=== PATIENT | male | born 1935 | race Caucasian/White ===

== ENCOUNTER 2019-08-17 00:07 | Emergency (ER) | payer MEDICARE, SELFPAY ==
[2019-08-17 00:27] VITALS: BP 214/94; PULSE 60; RESP 16; TEMP 37.4; O2SAT 99
--- NOTE | 2019-08-17 00:36 | ED.EPISTAXIS ---
HPI - Epistaxis General Chief complaint: Epistaxis Stated complaint: nose bleed Time Seen by Provider: 08/17/19 00:31 Source: patient and family Mode of arrival: ambulatory Limitations: no limitations History of Present Illness HPI Narrative: Patient presents to the emergency department for evaluation of a nosebleed that has resolved at the time of assessment. Patient states that he his nose felt very congested when he noticed a nosebleed in his right nostril. Patient states he then felt as if he was swallowing some of the blood. Symptoms resolved after about 10 minutes, but patient wanted to be checked out. Patient reports a history of a nosebleed usually once a year. No recent medication changes. He is compliant with his antihypertensives. Patient denies any chest pain or shortness of breath. No easy bruising. No trauma to the face. No current bleeding. No lightheadedness or dizziness. Patient takes clopidogrel, no other anticoagulation. Related Data Home Medications Medication Instructions Recorded Confirmed oxybutynin chloride 5 mg PO DAILY 08/17/19 Allergies Allergy/AdvReac Type Severity Reaction Status Date / Time No Known Allergies Allergy Verified 08/17/19 00:26 Review of Systems Review of Systems: Narrative: CONSTITUTIONAL: Denies fever HEENT: Reports nosebleed, now resolved CARDIOVASCULAR: Denies chest pain RESPIRATORY: Denies cough or dyspnea. GASTROINTESTINAL: Denies abdominal pain SKIN: Denies rash MUSCULOSKELETAL: Denies back pain NEUROLOGIC: Denies headache PMFSH Past Medical History Medical History BPH w/o urinary obs/LUTS CAD in [place] artery Carpal tunnel syndrome Coronary artery disease Dyslipidemia Elevated lipids Erectile dysfunction Essential (primary) hypertension Hx of iron deficiency anemia Leg fracture 1970 Myocardial infarction OAB (overactive bladder) Unspecified osteoarthritis, unspecified site Vitamin B12 deficiency Surgical History Surgical History History of arthroscopy of knee History of arthroscopy of shoulder 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 EYES: PERRLA and EOMI. ENT: Nares clear, no rhinorrhea or epistaxis. Mucous membranes moist. Dried blood in the oropharynx, no active epistaxis. NECK: Supple. CHEST: No respiratory distress, breathing even and non labored HEART: Regular rate, sinus rhythm ABDOMEN:Non distended, non tender EXTREMITIES: Normal range of motion. No edema. SKIN: Warm, dry, no rash. NEURO:No focal deficits. Alert and oriented x3 Course Vital Signs Vital signs: Vital Signs Temperature 37.4 C 08/17/19 00:27 Pulse Rate 60 08/17/19 00:27 Respiratory Rate 16 08/17/19 00:27 Blood Pressure 214/94 H 08/17/19 00: Pulse Oximetry 99 08/17/19 00:27 Temperature 37.4 C 08/17/19 00:27 Pulse Rate 60 08/17/19 00:27 Respiratory Rate 16 08/17/19 00:27 Blood Pressure 214/94 H 08/17/19 00:27 Pulse Oximetry 99 08/17/19 00:27 MDM - Epistaxis MDM Narrative Medical decision making narrative: Patient presented for evaluation of epistaxis that has resolved at the time of assessment. Patient is noted to be hypertensive, and this likely contributed to his nosebleed. Patient is otherwise asymptomatic without headache, chest pain, shortness of breath. No lightheadedness or dizziness. I verified patient's medication list, he is not on any other anticoagulation. He does take clopidogrel. I do not feel that we need to check blood wor
[2019-08-17] MEDS: OXYMETAZOLINE HCL 0.05% NAS 15 ML BTL (*BKC) 1 SPRAY (00:54)
[2019-08-17 01:07] VITALS: BP 198/90; PULSE 56; RESP 16; TEMP 36.9; O2SAT 98
[2019-08-17 01:16] VITALS: BP 175/85; PULSE 57; RESP 21; O2SAT 97
== END 2019-08-17 01:23 | disposition home or self-care (01) ==
PROVIDERS: Emergency Provider Emergency Medicine; PCP Family Medicine
DX: R04.0 Epistaxis (principal); I10 Essential (primary) hypertension; N40.0 Benign prostatic hyperplasia without lower urinary tract symptoms; I25.10 Atherosclerotic heart disease of native coronary artery without angina pectoris; E78.5 Hyperlipidemia, unspecified; I25.2 Old myocardial infarction; N32.81 Overactive bladder; E55.9 Vitamin D deficiency, unspecified; M19.90 Unspecified osteoarthritis, unspecified site; Z96.659 Presence of unspecified artificial knee joint
CPT/HCPCS: 99283; A9270

== ENCOUNTER 2021-05-23 16:17 | Emergency (ER) | payer MEDICARE, SELFPAY ==
--- NOTE | ~2021-05-23 | XR_ITS ---
XR chest 2V DATE: 05/23/2021 17:28 INDICATION: Cough TECHNIQUE: PA and lateral views COMPARISON: 05/30/2013 2 view chest FINDINGS: Heart size is within normal range. Is aortic calcification and tortuosity. No hilar or medi astinal enlargement. Right apical scarring. Right lower lobe and middle lobe scarring, chronic, present on May 02 14. Thank you devices of both femoral heads. Osteoarthritic change at the glenohumeral joints. Rotator cuff atrophy. Mild dextroscoliosis of the thoracic spine. IMPRESSION: Chronic right apical, middle lobe and right lower lobe scarring Reviewed, dictated and finalized at location A.
--- NOTE | 2021-05-23 16:22 | ECG_ITS ---
Measurements Intervals [place] Rate: 69 P: 66 [place]: 164 QRS: -53 QRSD: 165 T: -24 QT: 459 QTc: 494 Interpretive Statements SINUS RHYTHM WITH OCCASIONAL SUPRAVENTRICULAR PREMATURE COMPLEXES RIGHT BUNDLE BRANCH BLOCK [120+ ms QRS DURATION, UPRIGHT V1, 40+ ms S IN I/aVL/V4/V5/V6] LEFT ANTERIOR FASCICULAR BLOCK [QRS AXIS <= -45, QR IN I, RS IN II] NO PREVIOUS ECG AVAILABLE FOR COMPARISON Electronically Signed On 05-23-2021 18:49:20 CDT by Martha Hathaway M.D.
[2021-05-23 16:35] VITALS: BP 152/67; PULSE 64; RESP 14; TEMP 37; O2SAT 100
[2021-05-23 17:00] LABS: Add Urine Microscopic? YES; Appearance Urine Clear (Clear); Bilirubin Urine Negative (Negative); Blood Urine 1+ (Negative); Color Urine Yellow (Yellow); Glucose Urine UA Negative (Negative); Ketones Urine Negative (Negative); Leukocyte Esterase Ur Negative LEU/UL (Negative); Mucus Urine Rare /lpf; Nitrate Urine Negative (Negative); Protein Urine Negative (Negative); Specific Grav Ur 1.014 (1.001-1.035); Urobilinogen Urine Negative mg/dL (<2.0); WBC Urine 0-3 /hpf
--- NOTE | 2021-05-23 17:22 | ED.BACK ---
HPI - Back Pain/Injury General Chief Complaint: Back Pain/Injury Stated Complaint: Back pain/ chest pain Time Seen by Provider: 05/23/21 17:05 Source: patient Mode of arrival: ambulatory Limitations: no limitations History of Present Illness HPI Narrative: 86 year old male presents today with complaints of generalized aches and pain to the upper body. Patient states since Thursday he has had aches and pains to his arms, chest, shoulders, and neck. Patient also states he has had a cough and runny nose which is new. Denies sob, abdominal pain, n/v/d, or recent falls. Patient with history significant for arthritis, covid in 2019, [place] in 2010 (pain is not similar), and high cholesterol. Related Data Home Medications Medication Instructions Recorded Confirmed vitamin B complex 1 tablet PO DAILY 12/04/20 12/04/20 Allergies Allergy/AdvReac Type Severity Reaction Status Date / Time No Known Allergies Allergy Verified 11/29/19 09:10 Review of Systems Review of Systems: CONSTITUTIONAL: Denies fever, chills, or sweats. EYES: Denies visual changes, redness, or discharge. ENT: Rhinorrhea. Denies congestion, sore throat, or otalgia. CARDIOVASCULAR: Chest/pleuritic pain lasting short periods of time in varying spots. Denies palpitations, or edema. RESPIRATORY: Cough. Pain with deep breath at times. Denies dyspnea. GASTROINTESTINAL: Denies abdominal pain, nausea, vomiting, or diarrhea. GENITOURINARY: Denies dysuria or hematuria. SKIN: Denies rash or itching. MUSCULOSKELETAL: Generalized body aches to upper body, shoulder, neck, chest, arms. NEUROLOGIC: Denies headache, numbness, dizziness, or weakness. PSYCHIATRIC: Denies anxiety or depression. [facility] Past Medical History Medical History BPH w/o urinary obs/LUTS CAD in [place] artery Carpal tunnel syndrome Coronary artery disease Dyslipidemia Elevated lipids Erectile dysfunction Essential (primary) hypertension Hx of iron deficiency anemia Leg fracture 1970 Myocardial infarction OAB (overactive bladder) Unspecified osteoarthritis, unspecified site Vitamin B12 deficiency Surgical History Surgical History History of arthroscopy of knee (~04/30/20) History of arthroscopy of shoulder 2002 - left, 2005 - right History of carpal tunnel surgery of left wrist 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 HEAD: Normocephalic, atraumatic. EYES: PERRLA and EOMI. ENT: Nares clear, no rhinorrhea or epistaxis. Mucous membranes moist. Oropharynx without tonsillar hypertrophy exudate or other lesions. Bilateral TMs pearly keller nonbulging NECK: Supple. No adenopathy or masses. No carotid bruits or JVD CHEST: Clear to auscultation. No respiratory distress. No wheezes rales or rhonchi HEART: Regular rate and rhythm. No murmur heard. Normal peripheral pulses. ABDOMEN: Soft, nontender, nondistended, normal active bowel sounds. EXTREMITIES: Normal range of motion. No edema. SKIN: Warm, dry, no rash. NEURO: No focal deficits. Alert and oriented x3. PSYCH: Normal mood and affect. Course Course Emergency Course: 78-year-old male with complaints of intermittent generalized pain to upper extremities, trunk, and neck. All results reviewed with patient. Patient without pain while he has been here. Patient also states that pain is relieved with 1 arthritis Tylenol. Chest x-ray does show some arthritis. Cici
[2021-05-23 17:38] LABS: SARS-CoV-2 RNA PCR Negative
[2021-05-23 18:43] VITALS: BP 148/86; PULSE 70; RESP 16; O2SAT 98
== END 2021-05-23 19:03 | disposition home or self-care (01) ==
PROVIDERS: Emergency Medicine; Emergency Provider Nurse Practitioner Family; PCP Family Medicine
DX: M15.9 Polyosteoarthritis, unspecified (principal); Z20.822 Contact with and (suspected) exposure to COVID-19; I25.10 Atherosclerotic heart disease of native coronary artery without angina pectoris; N40.0 Benign prostatic hyperplasia without lower urinary tract symptoms; E78.5 Hyperlipidemia, unspecified; I10 Essential (primary) hypertension; I25.2 Old myocardial infarction; N32.81 Overactive bladder; E53.8 Deficiency of other specified B group vitamins; Z96.651 Presence of right artificial knee joint; Z86.2 Personal history of diseases of the blood and blood-forming organs and certain disorders involving the immune mechanism; I49.1 Atrial premature depolarization; I45.2 Bifascicular block
CPT/HCPCS: 71046; 81001; 87804; 93005; 99283; C9803; U0003; U0005

== ENCOUNTER 2021-06-05 14:11 | Outpatient (CLI) | payer MEDICARE, SELFPAY ==
--- NOTE | ~2021-06-05 | XR_ITS ---
XR cervical spine min 6V DATE: 06/05/2021 14:32 INDICATION: Chronic anterior and posterior neck pain. No known injury. TECHNIQUE: AP, open-mouth, lateral, swimmer's and bilateral oblique views COMPARISON: None FINDINGS: There is reversal cervical curvature. C1 and C2 are normally aligned and the odontoid process is intact. There is 1.7 mm anterolisthesis at C2-3. There is severe degenerative disc disease at C4-5, C5-6 and C6-7. There is extensive degenerative change of the apophyseal and uncovertebral joints, encroaching upon t he neural foramina bilaterally. No fracture or dislocation, locked facet or prevertebral soft tissue swelling. IMPRESSION: Reversal of cervical curvature Severe cervical spondylosis Reviewed, dictated and finalized at location A.
== END 2021-06-05 14:12 | disposition home or self-care (01) ==
LOC: ANHIMG 14:17
PROVIDERS: PCP Family Medicine; Visit Provider Nurse Practitioner
DX: M47.812 Spondylosis without myelopathy or radiculopathy, cervical region (principal)
CPT/HCPCS: 72052

== ENCOUNTER 2021-06-14 13:47 | Outpatient (CLI) | payer MEDICARE, SELFPAY ==
--- NOTE | ~2021-06-14 | CT_ITS ---
EXAMINATION: CT humerus LT wo con DATE: 06/14/2021 14:12 INDICATION: Left upper arm pain TECHNIQUE: High resolution computed tomography (CT) of the left upper arm was performed without intra venous contrast. Additional sagittal and coronal reconstructions were performed. Automated exposure c ontrol and iterative reconstruction technique were employed. The dose-length product was 861.36 mGy-c m. COMPARISON: None FINDINGS: Bone alignment is normal. No fracture. Suture anchors at the greater tuberosity left humerus consiste nt with prior rotator cuff repair. There also appears to been an associated acromioplasty and distal left clavicle resection. Advanced left glenohumeral osteoarthritis with extensive full thickness cart ilage loss resulting in [id number] apposition with subarticular cystic changes along the glenoid an d humeral head. There is remodeling of the glenoid resulting in loss of bone stock with significant m edial to lateral thinning of the posterior glenoid. Moderate-sized humeral and small glenoid marginal osteophytes are present. Corticated ossicle near the apex of the humeral head consistent with either heterotopic ossification along the rotator cuff or a degenerative loose body. There is more subtle a nd amorphous calcification in the soft tissues at the subcoracoid space consistent with supraspinatus and infraspinatus calcific tendinitis. Additional ossific tendinitis of the subscapularis tendon as well as of the long head biceps tendon at the junction of the intra and extra articular portion of th e tendon. Moderate-sized glenohumeral joint effusion. Mild to moderate osteoarthritis at the left elb ow with small amount of additional subarticular cystlike changes involving portions of all 3 compartm ents of the elbow joint. No elbow joint effusion. Partially visualized lenticular region of mixed sof t tissue and fat attenuation along the posterolateral ribs of the mid thorax consistent with elastofi broma dorsi. Mild atelectasis at the left lung base along with a small calcified nodule consistent wi th old granulomatous disease. No pathologically enlarged left axillary lymphadenopathy. IMPRESSION: 1. Advanced left glenohumeral osteoarthritis. 2. 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 Reviewed, dictated and finalized at location B.
== END 2021-06-14 13:48 | disposition home or self-care (01) ==
PROVIDERS: PCP Family Medicine; Visit Provider Family Medicine
DX: M79.622 Pain in left upper arm (principal); M19.012 Primary osteoarthritis, left shoulder; D36.7 Benign neoplasm of other specified sites
CPT/HCPCS: 73200

== ENCOUNTER 2021-07-30 08:53 | Outpatient (CLI) | payer MEDICARE, SELFPAY ==
--- NOTE | ~2021-07-30 | XR_ITS ---
EXAMINATION: XR shoulder LT min 2V DATE: 07/30/2021 09:30 INDICATION: Left shoulder pain TECHNIQUE: AP internally, AP oblique externally rotated and axillary views of the left shoulder were obtained. COMPARISON: None FINDINGS: Normal alignment. No fracture.Postoperative change of prior acromioplasty and distal clavicle resect ion. Suture anchors at the greater tuberosity consistent with prior rotator cuff repair. Advanced lef t glenohumeral osteoarthritis with remodeling of the glenoid. Small heterotopic ossicle overlying the apex of the humeral head. This more dystrophic calcifications along the greater tuberosity likely re lated to rotator cuff calcific tendinitis. Visualized portions of the lungs are clear. Soft tissues a re unremarkable. IMPRESSION: 1. Advanced left glenohumeral osteoarthritis. 2. Postoperative change of left cranioplasty, distal clavicle resection and rotator cuff repair. 2. Left rotator cuff calcific tendinitis. Reviewed, dictated and finalized at location B. IMPRESSION: 1. Advanced left glenohumeral osteoarthritis. 2. Postoperative change of left cranioplasty, distal clavicle resection and rot ator cuff repair. 2. Left rotator cuff calcific tendinitis.
== END 2021-07-30 08:54 | disposition home or self-care (01) ==
LOC: CHSIMG 08:56
PROVIDERS: PCP Family Medicine; Visit Provider Orthopaedic Surgery
DX: M25.512 Pain in left shoulder (principal)
CPT/HCPCS: 73030

== ENCOUNTER 2021-11-19 09:52 | Outpatient (CLI) | payer MEDICARE, SELFPAY ==
--- NOTE | ~2021-11-19 | XR_ITS ---
EXAM: XR shoulder RT min 2V DATE: 11/19/2021 10:32 HISTORY: M25.511 - Pain in right shoulder x 6 months hx scope . COMPARISON: None available. FINDINGS: Right humeral head soft tissue anchors. Decreased mineralization. No fracture or dislocati on. No lytic or blastic lesion. Superior humeral head migration with undersurface remodeling. Severe glenohumeral narrowing with sclerosis, osteophytosis, and glenoid remodeling. Calcium deposition in t he remaining cuff soft tissues. No erosion or periosteal change. IMPRESSION: Severe right glenohumeral osteoarthritis. Rotator cuff tear. Calcific tendinitis. Reviewed, dictated and finalized at location K. IMPRESSION: Severe right glenohumeral osteoarthritis. Rotator cuff tear. Calcif ic tendinitis.
== END 2021-11-19 09:53 | disposition home or self-care (01) ==
LOC: CHSIMG 09:57
PROVIDERS: PCP Family Medicine; Visit Provider Orthopaedic Surgery
DX: M25.511 Pain in right shoulder (principal)
CPT/HCPCS: 73030

== ENCOUNTER 2022-05-22 01:09 | Outpatient (CLI) | payer MEDICARE, SELFPAY ==
--- NOTE | 2022-05-15 15:29 | PC.NURSE ---
Pre Radiology instructions Report to the outpatient [facility] AT 0800 on date 05/22/22. Procedure Time: 1000. YOU MAY BE MONITORED AT HOSPITAL FOR UP TO 4 HOURS AFTER YOUR PROCEDURE. 1-2 visitors will be allowed to accompany the patient into the hospital. ?The visitor will be instructed to remain with patient at all times or MAY BE ASKED TO leave the building due to restrictions.? We will allow the visitor to come back to the postoperative area when patient is ready.? NO children visitors allowed at this time. You and your visitor will be asked to self-screen and do not enter if you have any COVID symptoms. A mask is OPTIONAL within the hospital. Patients are to have no food or drink 6 hours prior to procedure time Driving will be restricted after the procedure, you must have a person to drive you home. Labs will be drawn in preop area and once reviewed, you will be taken to radiology area for procedure. When the procedure is completed, you will be taken to outpatient where you will be monitored for several hours. You may have one visitor in this area. Other than holding anti-coagulants, patient may take other medication(s) as scheduled. Prior to your appointment date patients are instructed to hold anti-coagulants after discussing with ordering provider to stop. If unable to discontinue anti-coagulants please notify radiologist. ? No aspirin or warfarin (Coumadin) for 7 days prior to the procedure. ? No clopidogrel (Plavix), ticagrelor (Brilinta), prasugrel (Effient) or dabigatran (Pradaxa) for 5 days prior to the procedure. ? No rivaroxaban (Xarelto), apixaban (Eliquis), dipyridamole (Aggrenox or Persantine) or cilostazol (Pletal) for 2 days prior to the procedure. Medications to discontinue per physician: PLAVIX Date to take last dose: 05/16/22 Please leave all valuables, including medications, at home the day of procedure. The hospital will not accept responsibility for valuables. Wear comfortable, loose fitting clothing.? Follow any additional instructions given to you from ordering provider. Telephone instructions given to AC LEMUS and asked if any additional questions and then verbalized understanding. Patient advised to call scheduling provider office or registration scheduling [phone] if any additional questions.
[2022-05-15 15:31] VITALS: BMI 24.4
[2022-05-22] VITALS (9 sets, daily range): BP systolic 146–160; BP diastolic 62–99; PULSE 49–57; RESP 16; TEMP 36.8; O2SAT 100
--- NOTE | ~2022-05-22 | XR_ITS ---
EXAMINATION: 1. CT cervical spine w con 2. XR myelogram spine cervical DATE: 05/22/2022 10:20 INDICATION: Neck pain. TECHNIQUE: The procedure including the risks, benefits, and alternatives was discussed with the patie nt. Risks discussed included headache, bleeding, and infection. The patient understood the risks and agreed to proceed. A timeout was performed to verify the patient's name, date of , and proced ure to be performed. The skin overlying the L4-L5 level was prepped and draped in usual sterile fash ion. Subcutaneous 1% lidocaine was used for local anesthesia. A 22 gauge spinal needle was advanced under fluoroscopic guidance. 10 mL Omnipaque 300 was injected. The needle was removed and the entry site was cleaned and dressed. There were no immediate complications. Fluoroscopy exposure time was 0 .2 minutes. The total number of images was 2. Computed tomography (CT) of the cervical spine was perf ormed without intravenous contrast. Automated exposure control and iterative reconstruction technique were employed. The dose-length product was 528.60 mGy-cm. COMPARISON: chest CT 04/16/11 FINDINGS: CERVICAL MYELOGRAM: Real-time fluoroscopy demonstrates the needle at the L4-L5 level. There is poor o pacification of the cervical spinal fluid with fluoroscopy, and further details will be described on the post myelogram CT. POST MYELOGRAM CERVICAL SPINE CT: There is scarring at the lung apices, right worse than left. There is 13 degrees levoscoliosis of cervicothoracic spine. There is 2 mm anterolisthesis of C2 on C3, C3 o n C4, C4 on C5, and C7 on T1. There is mild kyphosis of cervical spine. Vertebral body heights are no rmal. There is mildly decreased disc height at C2-C3 and C3-C4, severely decreased disc height from C 4-C5 through C6-C7, and mildly decreased disc height at C7-T1. The spinal cord morphology is normal. The following disc levels are specifically discussed: C2-C3: There is ankylosis of the right uncovertebral joint hypertrophy. There is ankylosis of the fac et joints with mild hypertrophy. There is no neural foraminal stenosis. There is no central canal aurora nosis. C3-C4: There is severe right and moderate left uncovertebral joint osteoarthritis. There is severe bi lateral facet joint osteoarthritis. There is mild bilateral neural foraminal stenosis. There is mild central canal stenosis. C4-C5: There is ankylosis of the uncovertebral joints with mild hypertrophy. There is ankylosis of th e facet joints with mild hypertrophy. There is mild bilateral neural foraminal stenosis. There is mil d central canal stenosis. C5-C6: There is severe bilateral uncovertebral joint osteoarthritis. There is severe bilateral facet joint osteoarthritis. There is moderate right and mild left neural foraminal stenosis. There is mild central canal stenosis. C6-C7: There is severe bilateral uncovertebral joint osteoarthritis. There is severe bilateral facet joint osteoarthritis. There is mild right neural foraminal stenosis. There is mild central canal sten osis. C7-T1: There is no uncovertebral joint osteoarthritis. There is severe bilateral facet joint osteoart hritis. There is no neural foraminal stenosis. There is no central canal stenosis. IMPRESSION: 1. Severe cervical spondylosis. 2. Cervicothoracic levoscoliosis. 3. Anterior and posterior fusion at C2-C3 and C4-C5. Reviewed, dictated and finalized at location A. IMPRESSION: 1. Severe cervical spondylosis. 2. Cervicothoracic levoscoliosis. 3. Anterior and posterior fusion at C2-C3 and C4-C5.
[2022-05-22 08:55] LABS: Mean Platelet Volume 10.3 fl (7.4-10.4); Platelet Count Result 205 k/mm3 (150-375)
[2022-05-22 09:02] LABS: INR 1.2; Prothrombin Time 14.2 Seconds (11.1-14.7)
== END 2022-05-22 12:35 | disposition home or self-care (01) ==
PROVIDERS: PCP Family Medicine; Referring Provider Neurological Surgery; Visit Provider Radiology Diagnostic Radiology
DX: M47.812 Spondylosis without myelopathy or radiculopathy, cervical region (principal); M41.9 Scoliosis, unspecified
CPT/HCPCS: 36415; 62302; 72126; 85049; 85610; Q9967

== ENCOUNTER 2022-07-10 08:38 | Outpatient (CLI) | payer MEDICARE, SELFPAY ==
[2022-07-10 12:49] LABS: Basophils Absolute Auto 0.1 K/mm3 (0.0-0.1); Eosinophils Absolute Auto 0.2 K/mm3 (0-0.3); Eosinophils Percent Auto 3.3 % (0-4.4); Hematocrit 35.3 % (42.0-52.0); Hemoglobin 11.6 g/dL (14.0-18.0); Immature Granulocyte Absolute 0.01 K/mm3 (0.00-0.031); Immature Granulocyte Percent A 0.2 % (0-0.5); Lymphocytes Absolute Auto 0.96 K/mm3 (0.9-3.2); Lymphocytes Percent Auto 18.7 % (18.3-44.2); Mean Corpuscular HGB Conc 32.9 g/dl (32-36); Mean Corpuscular Hemoglobin 29.4 pg (26-34); Mean Corpuscular Volume 89.4 fl (80-100); Mean Platelet Volume 10.8 fl (7.4-10.4); Monocytes Absolute Auto 0.6 K/mm3 (0.1-0.6); Monocytes Percent Auto 11.9 % (2.6-8.5); Neutrophils Absolute Auto 3.3 K/mm3 (1.3-6.7); Neutrophils Percent Auto 64.9 % (45.5-73.1); Platelet Count Result 204 k/mm3 (150-375); Red Blood Count 3.95 M/mm3 (4.6-6.20); Red Cell Distribution Width 14.1 % (11.5-14.5); White Blood Count 5.1 K/mm3 (4.5-10.0)
[2022-07-10 13:15] LABS: Alanine Aminotransferase 24 U/L (6-50); Albumin Level 4.2 g/dL (3.5-5.1); Alkaline Phosphatase 82 U/L (38-126); Anion Gap 5 mmol/L (8-16); Aspartate Amino Transferase 70 U/L (17-59); Blood Urea Nitrogen 14 mg/dL (9-20); Calcium 8.8 mg/dL (8.4-10.2); Carbon Dioxide 31 mmol/L (22-30); Chloride 100 mmol/L (98-107); Cholesterol 167 mg/dL (0-200); Estimated Glomerular Filt Rate > 60; Glucose 75 mg/dL (65-110); HDL Direct 46 mg/dL; Potassium 3.1 mmol/L (3.4-5.0); Sodium 136 mmol/L (137-145); Triglycerides 63 mg/dL (<150)
[2022-07-10 13:28] LABS: LDL Cholesterol Direct 86 mg/dL
[2022-07-10 13:58] LABS: Vitamin D 25 Hydroxy 46.6 ng/mL
== END 2022-07-10 08:39 | disposition home or self-care (01) ==
LOC: ANHGOSHLAB 08:39
PROVIDERS: PCP Family Medicine; Visit Provider Family Medicine
DX: E55.9 Vitamin D deficiency, unspecified (principal); I10 Essential (primary) hypertension; E78.5 Hyperlipidemia, unspecified; E53.8 Deficiency of other specified B group vitamins; Z12.5 Encounter for screening for malignant neoplasm of prostate
CPT/HCPCS: 36415; 80053; 80061; 82306; 82607; 84153; 84443; 85025; G0103

== ENCOUNTER 2022-07-25 09:17 | Outpatient (CLI) | payer MEDICARE, SELFPAY ==
[2022-07-25 14:47] LABS: Alanine Aminotransferase 29 U/L (6-50); Albumin Level 4.1 g/dL (3.5-5.1); Alkaline Phosphatase 80 U/L (38-126); Anion Gap 4 mmol/L (8-16); Aspartate Amino Transferase 53 U/L (17-59); Bilirubin,Total 0.8 mg/dL (0.2-1.3); Blood Urea Nitrogen 12 mg/dL (9-20); Calcium 8.7 mg/dL (8.4-10.2); Carbon Dioxide 33 mmol/L (22-30); Chloride 100 mmol/L (98-107); Estimated Glomerular Filt Rate > 60; Glucose 94 mg/dL (65-110); Potassium 3.5 mmol/L (3.4-5.0); Sodium 137 mmol/L (137-145)
== END 2022-07-25 09:18 | disposition home or self-care (01) ==
LOC: ANHGOSHLAB 09:17
PROVIDERS: PCP Family Medicine; Visit Provider Family Medicine
DX: E87.6 Hypokalemia (principal)
CPT/HCPCS: 36415; 80053

== ENCOUNTER 2022-10-02 00:26 | Day surgery (SDC) | payer MEDICARE, SELFPAY ==
[2022-09-22 15:11] VITALS: BMI 23.1
[2022-10-02 09:53] VITALS: BP 170/61; PULSE 64; RESP 18; TEMP 36.3; O2SAT 100
[2022-10-02] MEDS: LACTATED RINGERS 1,000 ML 150 ML IV CONT (10:04)
--- NOTE | 2022-10-02 10:20 | PM.HPGS ---
History of Present Illness History of Present Illness Consent: Risks, benefits, and alternatives have been discussed and questions answered. Patient agrees to proceed with procedure. Chief complaint: hx of colon polyps Narrative: Willi Quezada is a 87 year old male Presents for screening colonoscopy. Patient has a history of colon polyps identified in 2018. These were adenomatous polyps at that time. Patient states his current weight appetite and bowel movements are normally denies abdominal pain. He has had no bleeding. Family history noncontributory. Review of Systems Review of Systems: Review of systems noncontributory. [facility], [facility] Past Medical History Medical History BPH w/o urinary obs/LUTS CAD in [place] artery Carpal tunnel syndrome Coronary artery disease Dyslipidemia Erectile dysfunction Essential (primary) hypertension History of colon polyps Hx of iron deficiency anemia Leg fracture 1969 OAB (overactive bladder) Unspecified osteoarthritis, unspecified site Vitamin B12 deficiency Surgical History Surgical History History of arthroscopy of knee (~04/30/20) History of arthroscopy of shoulder approx. 2001 - left, approx. 2004 - right, Dr. Felix History of carpal tunnel surgery of left wrist History of cochlear implant approx. 07/2015, Dr. Guillory. 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 Beckwith 04/2020- Left, Dr. Stevens Social History Social History Smoking status: Never smoker Second hand tobacco smoke exposure: No Alcohol intake: current Alcohol use details: 1-2 per week Substance use: never Substance use type: does not use Lack of Transportation: No Lack of Food: Never True Current Housing: I Have Housing Concerned About Future Housing: No Difficulty Paying Gas/Electric Bills: No Difficulty Paying for Meds: No Currently Unemployed: No Education: High School Diploma/GED Difficulty w/ Childcare or Family Care: No Living arrangements: with family Additional living arrangements comments: Occupation/Education: retired Additional occupation/education comments: 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 Gender identity (if verbalized by the patient): Male Spiritual care concerns: No Meds Home Medications and Allergies Home Medications Medication Instructions Recorded Confirmed Type oxybutynin chloride 5 mg tablet 5 mg PO DAILY #90 tabs 12/04/20 09/22/22 Rx vitamin B complex 1 tablet PO DAILY 12/04/20 09/22/22 History acetaminophen 650 mg 1,300 mg PO QAM 06/04/21 09/22/22 History tablet,extended release (Tylenol Arthritis Pain) metoprolol succinate 50 mg 50 mg PO DAILY #90 tabs 12/05/21 09/22/22 Rx tablet,extended release 24 hr amlodipine 5 mg tablet 5 mg PO DAILY #90 tabs 01/01/22 09/22/22 Rx atorvastatin 20 mg tablet 20 mg PO QAM #90 tabs 01/01/22 09/22/22 Rx clopidogrel 75 mg tablet 75 mg PO DAILY #90 tabs 01/01/22 09/22/22 Rx losartan 100 1 tablet PO DAILY #90 tabs 01/01/22 09/22/22 Rx mg-hydrochlorothiazide 25 mg tablet tadalafil 5 mg tablet (Cialis) 5 mg PO DAILY PRN sexual activity 07/08/22 09/22/22 Rx #30 tabs potassium chloride 20 mEq 20 meq PO BID #180 tabs 07/14/22 09/22/22 Rx tablet,extended release(part/cryst) cyanocobalamin (vitamin B-12) 1,000 mcg sublingual DAILY #90 ea 07/22/22 09/22/22 Rx 1,000 mcg sublingual lozenge calcium citrate 600 mg PO DAILY 09/22/22 09/22/22 History cholecalciferol (vitamin D3) 25 25 mcg PO DAILY 09/22/22 09/22/22 History mcg (1,000 unit) capsule (Vitamin D3) Allergies Allergy/AdvReac Type Severity Reaction Status Date / Time No Known Allergies Allergy Verified 10/02/22 09:46 Vital Signs Vital Signs - 24 hr 10/02/22 09:53 Temperature 97.4 F L Pulse Rate 64 Respiratory R
--- NOTE | 2022-10-02 10:26 | WPDANESEPPF ---
Anes - Initial Pre Proc Eval Procedure: Operation Date: 10/02/22 11:00 Proposed Procedures p Colonoscopy - Suleiman Dennis MD Date/Time: 10/02/22 10:26 Surgeon: Suleiman Dennis MD Pre Op Diagnosis: hx of colon polyps Patient Data Age: 87 Gender: M Height: 1.85 m Weight: 76.6 kg Last Vital Signs Temp 97.4 F L 10/02/22 09:53 Pulse 64 10/02/22 09:53 Resp 18 10/02/22 09:53 BP 170/61 H 10/02/22 09:53 Pulse Ox 100 10/02/22 09:53 O2 Del Method Room Air 10/02/22 09:53 Allergies Allergy/AdvReac Type Severity Reaction Status Date / Time No Known Allergies Allergy Verified 10/02/22 09:46 Home Medications Medication Instructions Recorded Confirmed Type oxybutynin chloride 5 mg tablet 5 mg PO DAILY #90 tabs 12/04/20 09/22/22 Rx vitamin B complex 1 tablet PO DAILY 12/04/20 09/22/22 History acetaminophen 650 mg 1,300 mg PO QAM 06/04/21 09/22/22 History tablet,extended release (Tylenol Arthritis Pain) metoprolol succinate 50 mg 50 mg PO DAILY #90 tabs 12/05/21 09/22/22 Rx tablet,extended release 24 hr amlodipine 5 mg tablet 5 mg PO DAILY #90 tabs 01/01/22 09/22/22 Rx atorvastatin 20 mg tablet 20 mg PO QAM #90 tabs 01/01/22 09/22/22 Rx clopidogrel 75 mg tablet 75 mg PO DAILY #90 tabs 01/01/22 09/22/22 Rx losartan 100 1 tablet PO DAILY #90 tabs 01/01/22 09/22/22 Rx mg-hydrochlorothiazide 25 mg tablet tadalafil 5 mg tablet (Cialis) 5 mg PO DAILY PRN sexual activity 07/08/22 09/22/22 Rx #30 tabs potassium chloride 20 mEq 20 meq PO BID #180 tabs 07/14/22 09/22/22 Rx tablet,extended release(part/cryst) cyanocobalamin (vitamin B-12) 1,000 mcg sublingual DAILY #90 ea 07/22/22 09/22/22 Rx 1,000 mcg sublingual lozenge calcium citrate 600 mg PO DAILY 09/22/22 09/22/22 History cholecalciferol (vitamin D3) 25 25 mcg PO DAILY 09/22/22 09/22/22 History mcg (1,000 unit) capsule (Vitamin D3) Patient hx anesthesia problems: none Family hx anesthesia problems: none Results Review: All pre-operative results and documents have been reviewed as part of the pre-operative evaluation. [facility] Past Medical History Medical History BPH w/o urinary obs/LUTS CAD in [place] artery Carpal tunnel syndrome Coronary artery disease Dyslipidemia Erectile dysfunction Essential (primary) hypertension History of colon polyps Hx of iron deficiency anemia Leg fracture 1969 OAB (overactive bladder) Unspecified osteoarthritis, unspecified site Vitamin B12 deficiency Surgical History Surgical History History of arthroscopy of knee (~04/30/20) History of arthroscopy of shoulder approx. 2001 - left, approx. 2004 - right, Dr. Felix History of carpal tunnel surgery of left wrist History of cochlear implant approx. 07/2015, Dr. Guillory. 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 Beckwith 04/2020- Left, Dr. Stevens Social History Social History Smoking status: Never smoker Second hand tobacco smoke exposure: No Alcohol intake: current Alcohol use details: 1-2 per week Substance use: never Substance use type: does not use Lack of Transportation: No Lack of Food: Never True Current Housing: I Have Housing Concerned About Future Housing: No Difficulty Paying Gas/Electric Bills: No Difficulty Paying for Meds: No Currently Unemployed: No Education: High School Diploma/GED Difficulty w/ Childcare or Family Care: No Living arrangements: with family Additional living arrangements comments: Occupation/Education: retired 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 Gender identity (if verbalized by the patient): Male Spiritual care concerns: No Anes - Eval Final PreProcedure Day of Procedure 10/02/22 10:26 Patient weight:
[2022-10-02 11:15] VITALS: BP 119/53; PULSE 57; RESP 20; O2SAT 99
[2022-10-02 11:25] VITALS: BP 112/68; PULSE 60; RESP 19; O2SAT 99
[2022-10-02 11:35] VITALS: BP 124/98; PULSE 60; RESP 18; O2SAT 100
== END 2022-10-02 11:52 | disposition home or self-care (01) ==
PROVIDERS: PCP Family Medicine; Visit Provider Internal Medicine Gastroenterology
PROC: 0DJD8ZZ Inspection of Lower Intestinal Tract, Via Natural or Artificial Opening Endoscopic (ICD-10-PCS; CPT 45378; principal; 2022-10-02 11:00)
DX: Z12.11 Encounter for screening for malignant neoplasm of colon (principal); K57.30 Diverticulosis of large intestine without perforation or abscess without bleeding; K64.8 Other hemorrhoids; Z86.010 Personal history of colon polyps; I25.10 Atherosclerotic heart disease of native coronary artery without angina pectoris; E78.5 Hyperlipidemia, unspecified; I10 Essential (primary) hypertension; E53.8 Deficiency of other specified B group vitamins; N32.81 Overactive bladder; Z79.02 Long term (current) use of antithrombotics/antiplatelets
CPT/HCPCS: G0105; J2704; J7120

== ENCOUNTER 2022-12-31 12:28 | Outpatient (CLI) | payer MEDICARE, SELFPAY ==
--- NOTE | ~2022-12-31 | XR_ITS ---
XR chest 2V 12/31/2022 12:49 Indication: Acute upper respiratory infection Procedure: PA and lateral views of the chest Comparison: 05/23/2021 Findings: Heart size normal. Chronic right apical pleural thickening/scarring. Chronic right basilar atelectasis/scarring. No acute focal pneumonia, edema, pleural effusion or pneumothorax. There are ri ght pleural calcifications, likely related to prior asbestos exposure or infection. Impression: 1: No acute cardiopulmonary disease. Reviewed, dictated and finalized at location B. Impression: 1: No acute cardiopulmonary disease.
[2022-12-31 13:38] LABS: Strep Group A RT-PCR NOT DETECTED (Negative)
[2022-12-31 13:52] LABS: Influenza A QL RT-PCR Negative (Negative); Influenza B QL RT-PCR Negative (Negative); RSV RNA, RT-PCR Negative (Negative); SARS-CoV-2 RNA PCR Negative (Negative)
== END 2022-12-31 12:29 | disposition home or self-care (01) ==
PROVIDERS: PCP Family Medicine; Visit Provider Family Medicine
DX: R50.9 Fever, unspecified (principal); J06.9 Acute upper respiratory infection, unspecified; Z20.822 Contact with and (suspected) exposure to COVID-19
CPT/HCPCS: 71046; 87637; 87651

== ENCOUNTER 2023-01-07 11:49 | Outpatient (CLI) | payer MEDICARE, SELFPAY ==
[2023-01-07 18:55] LABS: Basophils Absolute Auto 0.1 K/mm3 (0.0-0.1); Basophils Percent Auto 0.9 % (0.2-1.2); Eosinophils Absolute Auto 0.5 K/mm3 (0-0.3); Eosinophils Percent Auto 6.2 % (0-4.4); Hematocrit 34.9 % (42.0-52.0); Immature Granulocyte Absolute 0.04 K/mm3 (0.00-0.031); Immature Granulocyte Percent A 0.5 % (0-0.5); Lymphocytes Absolute Auto 1.27 K/mm3 (0.9-3.2); Lymphocytes Percent Auto 14.9 % (18.3-44.2); Mean Corpuscular HGB Conc 31.5 g/dl (32-36); Mean Corpuscular Hemoglobin 28.5 pg (26-34); Mean Corpuscular Volume 90.4 fl (80-100); Neutrophils Absolute Auto 5.6 K/mm3 (1.3-6.7); Neutrophils Percent Auto 65.5 % (45.5-73.1); Platelet Count Result 529 k/mm3 (150-375); Red Blood Count 3.86 M/mm3 (4.6-6.20); Red Cell Distribution Width 13.2 % (11.5-14.5); White Blood Count 8.5 K/mm3 (4.5-10.0)
[2023-01-07 20:38] LABS: Alanine Aminotransferase 34 U/L (6-50); Alkaline Phosphatase 92 U/L (38-126); Anion Gap 8 mmol/L (8-16); Aspartate Amino Transferase 62 U/L (17-59); Bilirubin,Total 0.6 mg/dL (0.2-1.3); Blood Urea Nitrogen 14 mg/dL (9-20); Calcium 9.5 mg/dL (8.4-10.2); Carbon Dioxide 33 mmol/L (22-30); Chloride 95 mmol/L (98-107); Estimated Glomerular Filt Rate > 60; Glucose 105 mg/dL (65-110); Potassium 3.9 mmol/L (3.4-5.0); Sodium 136 mmol/L (137-145)
[2023-01-08 14:41] LABS: Iron 39 ug/dL (49-181)
[2023-01-08 14:51] LABS: Percent Iron Saturation 17 % (20-50)
[2023-01-08 17:07] LABS: Folic Acid > 20.0 ng/mL (2.76->20)
== END 2023-01-07 11:50 | disposition home or self-care (01) ==
LOC: ANHGOSHLAB 11:50
PROVIDERS: PCP Family Medicine; Visit Provider Family Medicine
DX: I10 Essential (primary) hypertension (principal); D64.9 Anemia, unspecified
CPT/HCPCS: 36415; 80053; 82607; 82728; 82746; 83540; 83550; 85025

== ENCOUNTER 2023-07-14 11:43 | Outpatient (CLI) | payer MEDICARE, SELFPAY ==
[2023-07-14 13:58] LABS: Hematocrit 37.4 % (42.0-52.0); Hemoglobin 12.1 g/dL (14.0-18.0); Mean Corpuscular HGB Conc 32.4 g/dl (32-36); Mean Corpuscular Hemoglobin 29.2 pg (26-34); Mean Corpuscular Volume 90.1 fl (80-100); Platelet Count Result 232 k/mm3 (150-375); Red Blood Count 4.15 M/mm3 (4.6-6.20); Red Cell Distribution Width 14.1 % (11.5-14.5); White Blood Count 6.9 K/mm3 (4.5-10.0)
[2023-07-14 14:06] LABS: Alanine Aminotransferase 34 U/L (6-50); Albumin Level 4.4 g/dL (3.5-5.1); Alkaline Phosphatase 81 U/L (38-126); Anion Gap 3 mmol/L (4-12); Aspartate Amino Transferase 101 U/L (17-59); Bilirubin,Total 0.8 mg/dL (0.2-1.3); Blood Urea Nitrogen 15 mg/dL (9-20); Calcium 9.2 mg/dL (8.4-10.2); Carbon Dioxide 33 mmol/L (22-30); Chloride 102 mmol/L (98-107); Cholesterol 151 mg/dL (0-200); Estimated Glomerular Filt Rate > 60; Glucose 90 mg/dL (65-110); HDL Direct 59 mg/dL; Potassium 3.1 mmol/L (3.4-5.0); Sodium 138 mmol/L (137-145); Triglycerides 66 mg/dL (<150)
[2023-07-14 14:17] LABS: LDL Cholesterol Direct 70 mg/dL
== END 2023-07-14 11:44 | disposition home or self-care (01) ==
LOC: ANHGOSHLAB 11:44
PROVIDERS: PCP Family Medicine; Visit Provider Nurse Practitioner
DX: E78.5 Hyperlipidemia, unspecified (principal)
CPT/HCPCS: 36415; 80053; 80061; 84443; 85027

== ENCOUNTER 2023-07-22 09:18 | Outpatient (CLI) | payer MEDICARE, SELFPAY ==
[2023-07-22 19:37] LABS: Potassium 3.3 mmol/L (3.4-5.0)
== END 2023-07-22 09:19 | disposition home or self-care (01) ==
LOC: ANHGOSHLAB 09:19
PROVIDERS: PCP Family Medicine; Visit Provider Nurse Practitioner
DX: E87.6 Hypokalemia (principal)
CPT/HCPCS: 36415; 84132

== ENCOUNTER 2023-09-01 10:32 | Outpatient (CLI) | payer MEDICARE, SELFPAY ==
--- NOTE | ~2023-09-01 | CT_ITS ---
CT Scan of the Chest without Contrast: Clinical Indication: Solitary pulmonary nodule Technique: Contiguous sections were acquired throughout the chest without intravenous contrast. Dose reduction technique was used on this scan by utilizing automated exposure control and iterative recon struction technique. The dose-length product (DLP) was 194.40 mGy-cm. Findings: There is no evidence of any significant mediastinal, hilar or axillary lymphadenopathy. Ascending aor ta dilated to 4.5 cm. There is cardiomegaly with coronary artery calcification. There is no evidence of pleural or pericardial effusion. Right upper lobe somewhat nodular/masslike consolidation with possible central cavitation is present, which could chronic scarring or postinflammatory change, versus less likely mass lesion. There is a 9 mm right upper lobe pulmonary nodule (axial image 42). Images through the upper abdomen reveal 2 mm nonobstructing right renal stone. Impression: 9 mm right upper lobe pulmonary nodule. According to Fleischner Society criteria, options would inclu de 3 month follow-up CT, PET/CT, or attempted tissue sampling to establish a histologic diagnosis. Probable scarring or other postinflammatory changes at the right lung apex. Ascending aortic aneurysm measures 4.5 cm. Reviewed, dictated and finalized at [facility]. Impression: 9 mm right upper lobe pulmonary nodule. According to Fleischner Society criteri a, options would include 3 month follow-up CT, PET/CT, or attempted tissue samp ling to establish a histologic diagnosis. Probable scarring or other postinflammatory changes at the right lung apex. Ascending aortic aneurysm measures 4.5 cm.
== END 2023-09-01 10:33 | disposition home or self-care (01) ==
PROVIDERS: PCP Family Medicine; Visit Provider Nurse Practitioner Family
DX: R91.1 Solitary pulmonary nodule (principal); I71.21 Aneurysm of the ascending aorta, without rupture
CPT/HCPCS: 71250

== ENCOUNTER 2023-10-20 09:43 | Outpatient (CLI) | payer MEDICARE, SELFPAY ==
--- NOTE | ~2023-10-20 | PE_ITS ---
EXAMINATION: PET skull to mid thigh DATE: 10/20/2023 12:16 INDICATION: Solitary pulmonary nodule. TECHNIQUE: Blood glucose level was 92 mg/dL. 11.887 mCi of 18-fluorodeoxyglucose (18-FDG) was adminis tered i.v. Low dose computed tomography (CT) images were acquired from the base of the brain to the p roximal thighs for attenuation correction and anatomic localization. Automated exposure control was e mployed. Dose-length product (DLP) was 840 mGy-cm. Positron emission tomography (PET) images were acq uired in the same distribution. COMPARISON: Chest CT 09/01/2023, 04/16/11 FINDINGS: Head/neck: There are no pathologically enlarged lymph nodes. Chest: There are calcified pleural plaques bilaterally, which may be seen with asbestos exposure. The re is mild rounded atelectasis in the lower lobes and right middle lobe. There are peripheral airspac e opacities with volume loss in right upper lobe, consistent with scarring. There is an 8 mm nodule i n right upper lobe without increased activity that measured 6 mm on 04/16/11. There is mild scarring in left upper lobe. No pleural effusion. The heart size is normal. There are coronary artery calcificat ions. No pericardial effusion. Calcified right hilar lymph nodes are consistent with old granulomatou s disease. There is increased activity in a normal-sized mediastinal and bilateral hilar lymph nodes nodes, likely reactive. There are bilateral shoulder arthroplasties. Abdomen/pelvis/proximal thighs: Calcifications in the liver and spleen are consistent with old granul omatous disease. The gallbladder, pancreas, and right adrenal gland are normal. There is a 16 mm mass in left adrenal gland showing low attenuation, consistent with an adenoma. There is a 2 mm stone in right kidney. There is a 2.5 cm mass in left kidney. The prostate is moderately enlarged. There is di ffuse bladder wall thickening, likely secondary to chronic outlet obstruction. There is diverticulosi s of the colon without evidence of diverticulitis. The appendix is normal. There are no pathologicall y enlarged lymph nodes. There is no free intraperitoneal fluid. There are no pathologically enlarged lymph nodes. There is no free intraperitoneal fluid. 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 IMPRESSION: 1. 8 mm pulmonary nodule without increased activity with increase in size from 6 mm on 04/16/2011, like ly benign. 2. 2.5 cm left kidney mass, which may be a hemorrhagic cyst or renal cell carcinoma. Abdomen CT or MR I without and with contrast is recommended. Reviewed, dictated and finalized at location A. IMPRESSION: 1. 8 mm pulmonary nodule without increased activity with increase in size from 6 mm on 04/16/2011, likely benign. 2. 2.5 cm left kidney mass, which may be a hemorrhagic cyst or renal cell carci noma. Abdomen CT or MRI without and with contrast is recommended.
[2023-10-20 10:35] LABS: Glucose Point of Care 92 mg/dl (65-105)
== END 2023-10-20 09:44 | disposition home or self-care (01) ==
PROVIDERS: PCP Family Medicine; Visit Provider Physician Assistant
DX: R91.1 Solitary pulmonary nodule (principal); N28.89 Other specified disorders of kidney and ureter
CPT/HCPCS: 78815; A9552

== ENCOUNTER 2024-01-15 08:58 | Outpatient (CLI) | payer MEDICARE, SELFPAY ==
--- NOTE | ~2024-01-15 | CT_ITS ---
CT of the Abdomen: Indication: Renal mass Technique: 2.5 mm axial scans were obtained through the abdomen prior to and following intravenous a dministration of 100 cc of Omnipaque 350. Dose reduction technique was used on this scan by utilizing automated exposure control and iterative reconstruction technique. The dose-length product (DLP) was 442.88 mGy-cm. Findings: Scans through the lung bases no study bibasilar atelectasis or scarring. Focal calcified r ight basilar pleural plaque present.. The liver, spleen, pancreas, gallbladder, adrenals and right kidney are within normal limits. There i s a 2.7 x 2.7 cm central, enhancing solid mass in the left kidney (series 6 image 60 for example, ser ies 604 image 71), suspicious for renal cell carcinoma until proven otherwise. No evidence of aortic aneurysm. No lymphadenopathy. Visualized bowel loops are unremarkable. No ascites. Impression: 2.7 x 2.7 cm solid left renal mass, suspicious for renal cell carcinoma until proven otherwise. Reviewed, dictated and finalized at location M. TRUCK DRIVER Impression: 2.7 x 2.7 cm solid left renal mass, suspicious for renal cell carcinoma until p roven otherwise.
[2024-01-15 09:16] LABS: Estimated Glomerular Filt Rate > 60
== END 2024-01-15 08:59 | disposition home or self-care (01) ==
LOC: ANHIMG 09:01
PROVIDERS: PCP Family Medicine; Visit Provider Urology
DX: N28.89 Other specified disorders of kidney and ureter (principal)
CPT/HCPCS: 74170; Q9967

== ENCOUNTER 2024-01-19 11:22 | Outpatient (CLI) | payer MEDICARE, SELFPAY ==
[2024-01-19 14:46] LABS: Hemoglobin A1C 5.6 % (<5.7)
[2024-01-19 15:11] LABS: Alanine Aminotransferase 25 U/L (6-50); Albumin Level 4.1 g/dL (3.5-5.1); Alkaline Phosphatase 78 U/L (38-126); Anion Gap 7 mmol/L (4-12); Aspartate Amino Transferase 53 U/L (17-59); Bilirubin,Total 0.7 mg/dL (0.2-1.3); Blood Urea Nitrogen 17 mg/dL (9-20); Calcium 9.2 mg/dL (8.4-10.2); Carbon Dioxide 33 mmol/L (22-30); Chloride 100 mmol/L (98-107); Estimated Glomerular Filt Rate > 60; Glucose 87 mg/dL (65-110); Potassium 3.3 mmol/L (3.4-5.0); Sodium 140 mmol/L (137-145)
== END 2024-01-19 11:23 | disposition home or self-care (01) ==
PROVIDERS: PCP Family Medicine; Visit Provider Family Medicine
DX: R73.9 Hyperglycemia, unspecified (principal); I10 Essential (primary) hypertension
CPT/HCPCS: 36415; 80053; 83036

== ENCOUNTER 2024-02-05 10:36 | Outpatient (CLI) | payer MEDICARE, SELFPAY ==
[2024-02-05 19:29] LABS: Anion Gap 6 mmol/L (4-12); Blood Urea Nitrogen 16 mg/dL (9-20); Calcium 9.1 mg/dL (8.4-10.2); Carbon Dioxide 32 mmol/L (22-30); Chloride 99 mmol/L (98-107); Estimated Glomerular Filt Rate > 60; Glucose 108 mg/dL (65-110); Sodium 137 mmol/L (137-145)
== END 2024-02-05 10:37 | disposition home or self-care (01) ==
LOC: ANHGOSHLAB 10:38
PROVIDERS: PCP Family Medicine; Visit Provider Family Medicine
DX: E87.6 Hypokalemia (principal)
CPT/HCPCS: 36415; 80048

== ENCOUNTER 2024-04-18 10:33 | Outpatient (CLI) | payer MEDICARE, SELFPAY ==
--- NOTE | ~2024-04-18 | US_ITS ---
EXAMINATION: US retroperitoneal comp DATE: 04/18/2024 11:54 INDICATION: Left kidney mass. TECHNIQUE: Multiple ultrasound grayscale images of the kidneys were obtained. COMPARISON: CT 01/15/2024 FINDINGS: The right kidney measures 10.0 x 4.5 x 5.0 cm. The left kidney measures 10.8 x 5.7 x 4.0 cm. The kidn eys demonstrate normal parenchymal echogenicity. There is a 3.3 cm hyperechoic mass in left kidney. T here is no hydronephrosis. The bladder is normal. IMPRESSION: 1. 3.3 cm left kidney mass that demonstrated enhancement on the prior CT, consistent with renal cell carcinoma. Reviewed, dictated and finalized at location A. ER BOSS IMPRESSION: 1. 3.3 cm left kidney mass that demonstrated enhancement on the prior CT, cons istent with renal cell carcinoma.
--- OUTSIDE RECORDS SUMMARY | 2024-04-18 11:25 | XMS_ITS ---
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
--- OUTSIDE RECORDS SUMMARY | 2024-04-18 11:25 | XMS_ITS | Clinical Summary ---
Author Organization [facility] Address [address] [place] [address] Phone Care Team Providers Care Open Claims Representative Name Role Phone Unavailable Unavailable Unavailable Reason for Visit and Chief Complaint NEW PATIENT VISIT Plan of Treatment No Plan of Treatment Recorded Assessments Includes: Assessments from this encounter No Assessments Recorded Medical Equipment - Implanted Devices Includes: Current Devices No Medical Equipment Recorded Medications Administered Includes: Administered Medications from this encounter No Administered Medications Recorded Results Includes: Results discussed during this encounter No Results Recorded For Specified Dates History of Present Illness Includes: History of Present Illness from this encounter No History of Present Illness Recorded Social History No Social History Recorded - Smoking Status Unknown Medical History Includes: Medical History addressed during this encounter No Medical History Recorded Family History Includes: Family History addressed during this encounter No Family History Recorded Review of Systems Includes: Review of Systems from this encounter No Review of Systems Recorded Mental Status Includes: Mental Status from this encounter No Mental Status Recorded Functional Status Includes: Functional Status from this encounter No Functional Status Recorded Physical Exam Includes: Physical Exam from this encounter No Physical Exam Recorded Encounters Encounter Provider Location Date Check-In Time Check- Out Time Diagnosis NEW PATIENT VISIT [facility] 7 3:00PM 11:59PM Clinical Notes Includes: Clinical Notes from this encounter No Clinical Notes Recorded
--- OUTSIDE RECORDS SUMMARY | 2024-04-18 11:25 | XMS_ITS | Referral Summary ---
Author Organization [facility] [address] [place] [address] [address] [place] [address] Care Team Providers Care Skull Splitter Name Role Phone Garett Fitzpatrick MD Primary Care Provider Encounters Date Type Department Care Team Description 02/25/2024 9:30 AM SQL BI DEVELOPER Office Visit [facility] Cardiology [address] [facility] [address] [place] [address] Priscilla Mullins NP Coronary artery disease involving [place] coronary artery of [place] heart without angina pectoris (Primary Dx); Moderate aortic stenosis; Aneurysm of ascending aorta without rupture (HCC); Essential hypertension 01/27/2024 1:00 PM SQL BI DEVELOPER Procedure visit [facility]ol[facility]ology [facility] [address] [place] [address] Layla Ochoa Au.D. Sensorineural hearing loss, bilateral (Primary Dx); Encounter for adjustment and management of cochlear device from Last 3 Months Allergies No known active allergies Medications oxybutynin (DITROPAN) 5 mg tabletIndicatio ns:Urinary Urgency Take 1 tablet (5 mg total) by mouth every morning Active atorvastatin (LIPITOR) 20 mg tabletIndicatio ns:coronary artery disease,hyperli pidemia Take 1 tablet (20 mg total) by mouth every morning Active potassium chloride ER 10 mEq CR capsuleIndicati ons:hypokalemia prevention Take 1 tablet/capsule (10 mEq total) by mouth 2 (two) times a day 0 Active losartan-hydroc hlorothiazide (HYZAAR) 100-25 mg per tabletIndicatio ns:hypertension Take 1 tablet by mouth every morning Active calcium carbonate (CALCIUM 600 ORAL)Indication s:supplement Take 600 mg by mouth every morning Active cholecalciferol (VITAMIN D-3) 1,000 unitIndications :supplement Take 1 tablet/capsule (1,000 Units total) by mouth every morning Active ferrous sulfate ER 324 mg (65 mg iron) EC tabletIndicatio ns:supplement Take 1 tablet (324 mg total) by mouth every morning 3 Active fluticasone propionate (FLONASE) 50 mcg/actuation nasal spray Administer 1 spray into each nostril as needed for rhinitis 4 Active metoprolol XL (TOPROL-XL) 50 mg extended release tabletIndicatio ns:hypertension Take 1 tablet (50 mg total) by mouth front man before breakfast 4 Active clopidogreL (PLAVIX) 75 mg tabletIndicatio ns:myocardial infarction prevention Take 1 tablet (75 mg total) by mouth every morning Do not take while nerve catheter is in place. May resume after nerve catheter is removed. Do not take any sooner than 6 hours after nerve catheter is removed. 4 Active acetaminophen 500 mg capsuleIndicati ons:Pain Take 2 capsules (1,000 mg total) by mouth every 6 (six) hours 90 tablet 4 Active cyanocobalamin (Vitamin B-12) 1,000 mcg tabletIndicatio ns:Prevention of Vitamin B12 Deficiency Take 1 tablet (1,000 mcg total) by mouth daily Active tadalafiL (CIALIS) 5 mg tablet Take 1 tablet (5 mg total) by mouth as needed for erectile dysfunction Active amLODIPine (NORVASC) 10 mg tabletIndicatio ns:hypertension Take 1 tablet (10 mg total) by mouth daily 90 tablet 2 4 Active Active Problems Problem Noted Date Diagnosed Date S/P reverse total shoulder arthroplasty, right 0 08/20/2023 Status post surgery 08/18/2023 Rotator cuff tear arthropathy of right shoulder 07/20/2023 S/P shoulder replacement, left 12/16/2022 Rotator cuff tear arthropathy of left shoulder 0 11/17/2022 Coronary artery disease invo lving [place] coronary artery of [place] heart without angina pectoris 12/23/2016 Immunizations Name Administration Dates Next Due Influenza, Quadrivalent, Hig h Dose, Preservative Free, Intrr 12/18/2022(Deferred: Patient Refused - Per pt he will take the flu vaccine at his pcp [facility]),12/17/2022(Deferred: Patient Refused - Pt wants to discuss Flu vaccine with surgeon before.Pt ended up refusing, wants to be safe after hearing what his MD stated on holding shots post op.) Social History Tobacco Use Types Packs/Day Years Used Date Smoking Tobacco: Never Passive Smoke Exposure: Never Smokeless Tobacco: Never Tobacco Cessation:Counseling Given: Not Answered Alcohol Use Standard Drinks/Week Comments Yes 1 (1 standard drink = 0.6 oz pur e alcohol) AUDIT-C Answer Date Recorded Q1: How often do you have a drink containing alc ohol? 2-4 times a month 08/18/2023 Q2: How many drinks containi ng alcohol do you have on a typical day when you are drinking? 3 or 4 08/18/2023 Q3: How often do you have si x or more drinks on one occasion? Never 08/18/2023 Personal Safety Answer Date Recorded Have you ever been in or are you currently in a harmful physical or emotional relationship or is someone making you feel afraid or unsafe? Denies 08/18/2023 Sex and Gender Information Value Date Recorded Sex Assigned at Not on file Legal Sex Male 8:05 AM SQL BI DEVELOPER Gender Identity Not on file Sexual Orientation Not on file Last Filed Vital Signs Vital Sign Reading Time Taken Comments Blood Pressure 140/70 02/25/2024 9:42 AM SQL BI DEVELOPER Pulse 61 02/25/2024 9:42 AM SQL BI DEVELOPER Temperature 36.4 C (97.6 F) 10/26/2023 9:02 AM CDT Respiratory Rate 18 08/20/2023 8:57 AM CDT Oxygen Saturation 98% 02/25/2024 9:42 AM SQL BI DEVELOPER Inhaled Oxygen Concentration - - Weight 78.9 kg (174 lb) 02/25/2024 9:42 AM SQL BI DEVELOPER Height 185.4 cm (6' 1 ) 02/25/2024 9:42 AM SQL BI DEVELOPER Body Mass Index 22.96 02/25/2024 9:42 AM SQL BI DEVELOPER Plan of Treatment Not on file Medical Devices Implanted Type Area Convalescent Sitter Device Identifier Shelf Expiration Date Model / Serial / Lot [employer] Od25 Mm Full Wedge Augment Shoulder 15 D Baseplate Glenoid [id number] - [id number] - [id number] Implanted:Qty: 1 on 12/16/2022 by Esvin Nieves MD at [facility] Left: Shoulder [employer] 07/18/2027 [id number] / [id number] / [employer] Tornier Aequalis Perform 39mm Reverse Shoulder Standard Sphere [id number] - [id number] - [id number] Implanted:Qty: 1 on 12/16/2022 by Esvin Nieves MD at [facility] Left: Shoulder [employer] 09/02/2027 [id number] / [id number] / [employer] Aequalis Perform Reversed Od6.5 Mm L40 Mm Central Glenoid Screw Baseplate Nonsterile [id number] - [id number] Implanted:Qty: 1 on 12/16/2022 by Esvin Nieves MD at [facility] Left: Shoulder [employer] [id number] / / [employer] Aequalis Perform Reversed 5mm 26mm Peripheral Glenoid Screw [id number] - [id number] Implanted:Qty: 1 on 12/16/2022 by Esvin Nieves MD at [facility] Left: Shoulder [employer] [id number] / / [employer] Aequalis Perform Reversed 5mm 38mm Peripheral Glenoid Screw [id number] - [id number] Implanted:Qty: 2 on 12/16/2022 by Esvin Nieves MD at [facility] Left: Shoulder [employer] [id number] / / [employer] Insert Perform 10 Deg [id number] [id number] - [id number] - [id number] Implanted:Qty: 1 on 12/16/2022 by Esvin Neives MD at [facility] Left: Shoulder [employer] 02/04/2027 [id number] / [id number] / [employer] Stem Perform Sz 3 Plus Humeral Long Dwx3pl - [id number] - [id number] Implanted:Qty: 1 on 12/16/2022 by Esvin Nieves MD at [facility] Left: Shoulder [employer] 06/06/2027 [id number] / [id number] / [employer] Aequalis Perform Reversed 6.5mm 35mm Central Glenoid Screw [id number] - [id number] Implanted:Qty: 1 on 08/18/2023 by Esvin Nieves MD at [facility] Right: Shoulder [employer] [id number] / / [employer] Aequalis Perform Reversed 5mm 22mm Peripheral Glenoid Screw [id number] - [id number] Implanted:Qty: 1 on 08/18/2023 by Esvin Nieves MD at [facility] Right: Shoulder [employer] [id number] / / [employer] Aequalis Perform Reversed 5mm 30mm Peripheral Glenoid Screw Fsg237 - [id number] Implanted:Qty: 2 on 08/18/2023 by Esvin Nieves MD at [facility] Right: Shoulder [employer] [id number] / / [employer] Aequalis Perform Reversed 5mm 34mm Peripheral Glenoid Screw Qvd236 - [id number] Implanted:Qty: 1 on 08/18/2023 by Esvin Nieves MD at [facility] Right: Shoulder [employer] [id number] / / [employer] Tray Stem Humeral Shoulder Reverse Long Size 2 Plus Perform [id number] Dwx2pl - [id number] - [id number] Implanted:Qty: 1 on 08/18/2023 by Esvin Nieves MD at [facility] Right: Shoulder [employer] 11/04/2027 [id number] / [id number] / [employer] Insert Perform 10 Deg Ret [id number] - [id number] - [id number] Implanted:Qty: 1 on 08/18/2023 by Esvin Nieves MD at [facility] Right: Shoulder [employer] 06/16/2028 [id number] / [id number] / [employer] Aequalis Perform Od25 Mm Augment 35 D Half Wedge Baseplate Glenoid [id number] - [id number] - [id number] Implanted:Qty: 1 on 08/18/2023 by Esvin Nieves MD at [facility] Right: Shoulder [employer] 07/06/2028 [id number] / [id number] / [employer] Tornier Aequalis Perform Od39 Mm Lateralize Reverse Shoulder +3 Mm Sphere Glenoid [id number] - [id number] - [id number] Implanted:Qty: 1 on 08/18/2023 by Esvin Nieves MD at [facility] Right: Shoulder [employer] 05/21/2028 [id number] / [id number] / Insurance T MEDICARE T MEDICARE AETNA MEDICARE Advance Directives For more information, please contact: [phone] * Full Code (Latest Code Status on File) Date Activated Date Inactivated Comments 08/18/2023 7:30 PM 08/20/2023 7:38 PM * Full Code Date Activated Date Inactivated Comments 12/16/2022 6:25 PM 12/18/2022 8:01 PM Care Teams Skull Splitter Relationship Specialty Start Date End Date Garett Fitzpatrick MD PCP - General Family Practice 12/23/16
--- OUTSIDE RECORDS SUMMARY | 2024-04-18 11:25 | XMS_ITS | Clinical Summary ---
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, [address] [place] [address] Layla Ochoa Au.D. Sensorineural hearing loss, bilateral (Primary Dx); Encounter for adjustment and management of cochlear device from Last 3 Months Immunizations Name Administration Dates Next Due Influenza, Quadrivalent, Hig h Dose, Preservative Free, Intrr 12/18/2022(Deferred: Patient Refused - Per pt he will take the flu vaccine at his pcp [facility]),12/17/2022(Deferred: Patient Refused - Pt wants to discuss Flu vaccine with surgeon before.Pt ended up refusing, wants to be safe after hearing what his MD stated on holding shots post op.) Surgical History Surgery Date Site/Laterality Comments TOTAL KNEE ARTHROPLASTY Bilateral 2019 KNEE ARTHROSCOPY 03/09/2020 - 03/08/2021 SHOULDER ARTHROSCOPY Bilateral L - 2001, R - 2004 COCHLEAR IMPLANT 03/09/2015 - 03/08/2016 Left CARDIAC CATHETERIZATION 03/09/2009 - 03/08/2010 demonstrating occlusion of a distal 3rd diagonal branch of his LAD --> medical management COLONOSCOPY 09/06/2022 - 10/06/2022 Medical History Medical History Date Comments Hypertension Hypertension Hx Other Medical DJD Covid-19 01/2020 Epistaxis Family History Medical History Relation Name Comments Heart attack Father Myocardial Infa rction; Cause of : Myocardial Infarction Heart attack Mother Myocardial Infa rction; Cause of : Myocardial Infarction Anesthesia problems Neg Hx Malig Hypertension Neg Hx Malig Hyperthermia Neg Hx Pseudochol deficiency Neg Hx Relation Name Status Comments Father (Age 81) Mother (Age 94) Social History Tobacco Use Types Packs/Day Years [...] on file Legal Sex Male 8:05 AM SHOE STITCHER Gender Identity Not on file Sexual Orientation Not on file Obstetrics History Last Filed Vital Signs Vital Sign Reading Time Taken Comments Blood Pressure 140/70 02/25/2024 9:42 AM SHOE STITCHER Pulse 61 02/25/2024 9:42 AM SHOE STITCHER Temperature 36.4 C (97.6 F) 10/26/2023 9:02 AM CDT Respiratory Rate 18 08/20/2023 8:57 AM CDT Oxygen Saturation 98% 02/25/2024 9:42 AM SHOE STITCHER Inhaled Oxygen Concentration - - Weight 78.9 kg (174 lb) 02/25/2024 9:42 AM SHOE STITCHER Height 185.4 cm (6' 1 ) 02/25/2024 9:42 AM SHOE STITCHER Body Mass Index 22.96 02/25/2024 9:42 AM SHOE STITCHER Plan of Treatment Health Maintenance Due Date Last Done Comments Depression Screening 1937 Hepatitis B Screening 1955 Zoster Vaccine (1 of 2) 1987 Well Visit 65+ 2002 Pneumococcal vaccine 65+ (2 of 2 - PCV) 12/08/2011 12/07/2010, 12/20/2002 Influenza Vaccine (#1) 2023 9, 12/07/2017, 12/12/2016, Additional history exists Fall Risk Assessment 08/19/2024 08/20/2023 DTaP/Tdap/Td Vaccine (2 - Td or Tdap) 06/20/2027 06/19/2017 Medical Devices Implanted Type Area Welding Manager Device Identifier Shelf Expiration Date Model / Serial / Lot [employer] Od25 Mm Full Wedge Augment Shoulder 15 D Baseplate Glenoid [id number] - [id number] - [id number] Implanted:Qty: 1 on 12/16/2022 by Esvin Nieves MD at [facility] Left: Shoulder [employer] 07/18/2027 [id number] / [id number] / [employer] Tornier Aequalis Perform 39mm Reverse Shoulder Standard Sphere [id number] - [id number] - [id number] Implanted:Qty: 1 on 12/16/2022 by Esvin Nieves MD at [facility] Left: Shoulder [employer] 09/02/2027 [id number] / [id number] / [employer] Aequalis Perform Reversed Od6.5 Mm L40 Mm Central Glenoid Screw Baseplate Nonsterile Ioq716 - [id number] Implanted:Qty: 1 on 12/16/2022 by Esvin Nieves MD at [facility] Left: Shoulder [employer] [id number] / / [employer] Aequalis Perform Reversed 5mm 26mm Peripheral Glenoid Screw [id number] - [id number] Implanted:Qty: 1 on 12/16/2022 by Esvin Nieves MD at [facility] Left: Shoulder [employer] [id number] / / [employer] Aequalis Perform Reversed 5mm 38mm Peripheral Glenoid Screw Jwk040 - [id number] Implanted:Qty: 2 on 12/16/2022 by Esvin Nieves MD at [facility] Left: Shoulder [employer] [id number] / / [employer] Insert Perform 10 Deg [id number] - [id number] - [id number] Implanted:Qty: 1 on 12/16/2022 by Esvin Nieves MD at [facility] Left: Shoulder [employer] 02/04/2027 [id number] / [id number] / [employer] Stem Perform Sz 3 Plus Humeral Long Dwx3pl - [id number] - [id number] Implanted:Qty: 1 on 12/16/2022 by Esvin Nieves MD at [facility] Left: Shoulder [employer] 06/06/2027 [id number] / [id number] / [employer] Aequalis Perform Reversed 6.5mm 35mm Central Glenoid Screw Gwq738 - [id number] Implanted:Qty: 1 on 08/18/2023 by Esvin Nieves MD at [facility] Right: Shoulder [employer] [id number] / / [employer] Aequalis Perform Reversed 5mm 22mm Peripheral Glenoid Screw [id number] - [id number] Implanted:Qty: 1 on 08/18/2023 by Esvin Nieves MD at [facility] Right: Shoulder [employer] [id number] / / [employer] Aequalis Perform Reversed 5mm 30mm Peripheral Glenoid Screw Egq269 - [id number] Implanted:Qty: 2 on 08/18/2023 by Esvin Nieves MD at [facility] Right: Shoulder [employer] [id number] / / [employer] Aequalis Perform Reversed 5mm 34mm Peripheral Glenoid Screw Ofn685 - [id number] Implanted:Qty: 1 on 08/18/2023 by Esvin Nieves MD at [facility] Right: Shoulder [employer] [id number] / / [employer] Tray Stem Humeral Shoulder Reverse Long Size 2 Plus Perform [id number] Dwx2pl - [id number] - [id number] Implanted:Qty: 1 on 08/18/2023 by Esvin Nieves MD at [facility] Right: Shoulder [employer] 11/04/2027 [id number] / [id number] / [employer] Insert Perform 10 Deg Ret [id number] [id number] - [id number] - [id number] Implanted:Qty: 1 on 08/18/2023 by Esvin Nieves MD at [facility] Right: Shoulder [employer] 06/16/2028 [id number] / [id number] / [employer] Aequalis Perform Od25 Mm Augment 35 D Half Wedge Baseplate Glenoid [id number] - [id number] - [id number] Implanted:Qty: 1 on 08/18/2023 by Esvin Nieves MD at [facility] Right: Shoulder [employer] 07/06/2028 [id number] / [id number] / [employer] Tornier Aequalis Perform Od39 Mm Lateralize Reverse Shoulder +3 Mm Sphere Glenoid Ycr078 - [id number] - [id number] Implanted:Qty: 1 on 08/18/2023 by Esvin Nieves MD at [facility] Right: Shoulder [employer] 05/21/2028 [id number] / [id number] / Insurance AETNA MEDICARE AETNA MEDICARE AETNA MEDICARE Advance Directives For more information, please contact: [phone] * Full Code (Latest Code Status on File) Date Activated Date Inactivated Comments 08/18/2023 7:30 PM 08/20/2023 7:38 PM * Full Code Date Activated Date Inactivated Comments 12/16/2022 6:25 PM 12/18/2022 8:01 PM Care Teams Brazer Controlled Atmospheric Furnace Relationship Specialty Start Date End Date Garett Fitzpatrick MD PCP - General Family Practice 12/23/16
--- OUTSIDE RECORDS SUMMARY | 2024-04-18 11:25 | XMS_ITS | Clinical Summary ---
Author Organization [facility] Address [address] [place] [address] Phone Care Team Providers Care Secretary Bookkeeper Name Role Phone Unavailable Unavailable Unavailable Reason for Visit and Chief Complaint GENERAL OFFICE VISIT Plan of Treatment No Plan of [...] Date Check-In Time Check- Out Time Diagnosis GENERAL OFFICE VISIT [facility] 7 2:30PM 11:59PM Clinical Notes Includes: Clinical Notes from this encounter No Clinical Notes Recorded
--- OUTSIDE RECORDS SUMMARY | 2024-04-18 11:25 | XMS_ITS | Clinical Summary ---
Author Organization [facility] Address [address] [place] [address] Phone Care Team Providers Care Engagement Manager Name Role Phone Unavailable Unavailable Unavailable Reason [...] OFFICE VISIT [facility] 7 2:00PM 11:59PM Clinical Notes Includes: Clinical Notes from this encounter No Clinical Notes Recorded
--- OUTSIDE RECORDS SUMMARY | 2024-04-18 11:26 | XMS_ITS | Continuity of Care Document ---
Author Organization [facility] Address [address] [place] [address] Phone Care Team Providers Care Chartered Accountant Name Role Phone Phillip Tapia MD Unavailable Unavailable Procedures Procedure Date LOWER EXTREM CAT W/O CONTRAST 0 Additional supplies, materials, & Clinic al Staff Time During A PHE Advance Directives Directive Yes / No Effective Date File Name No Information Encounters Encounter Description Practice Location Reason(s) For Visit Diagnoses Date Provider Providers Copied on Encounter zhouwu [facility], [address], [place], [place], [id number], tel:[phone] [facility] No Information Willie Fisher. [address], [place], [id number], [place]. tel:[phone] Referring Provider: Duong Stevens, [address] [place] [address]. [facility] [address], [place], [address]. tel:[phone] Family History Family Member Type Diagnosis Age At Onset No Information Payers Payer name Insurance type Covered republican ID Authoriza tion(s) [facility] MEDICARE ADVANTAGE [id number] Social History Type Description Quantity Date Captured Comments Sex Male Smoking Status No Information Chief Complaint And Reason For Visit No Information Reason For Referral Reason For Referral No Information History Of Present Illness Encounter Date Complaint History Of Prese nt Illness No Information Functional Status Date Functional Assessmen t No Information Instructions Date Instruction Additional Infor mation No Information Assessments Type Assessment Date No Information Patient Care Teams Name Effective Dates (start - stop) Status Members No Information
--- OUTSIDE RECORDS SUMMARY | 2024-04-18 11:26 | XMS_ITS | Clinical Summary ---
Author Organization [facility] Address [address] [place] [address] Care Team Providers Care Cosmetic Sales Name Role Phone Unavailable Primary Care Provider Unavailabl e Social History Tobacco Use Types Packs/Day Years Used Date Smoking Tobacco: Never Assessed Sex and Gender Information Value Date Recorded Sex Assigned at Not on file Legal Sex Male 5:32 PM CDT Gender Identity Not on file Sexual Orientation Not on file Plan of Treatment Health Maintenance Due Date Last Done Comments DTaP, Tdap and Td Vaccines ( 1 - Tdap) 02/17/1956 Zoster Vaccines (1 of 2) 1987 Pneumococcal Vaccine: 65+ Ye ars (1 of 1 - PCV) 2002 RSV Immunization or 60+ Years (1 - 1-dose 75+ series) 02/17/2012 COVID-19 Vaccine (2023-2 5 season) 2023 Influenza Adult (#1) 2023 Meningococcal B Vaccine Aged Out No l onger eligible based on patient's age to complete this topic Meningococcal Vaccine Aged Out No zonia leonela eligible based on patient's age to complete this topic RSV Immunizations Under 20 Months Aged Out No longer eligible based on patient's age to complete this topic
--- OUTSIDE RECORDS SUMMARY | 2024-04-18 11:26 | XMS_ITS ---
Author Organization [facility] Address [address] [place] [address] Phone Care Team Providers Care Tear Down Man Name Role Phone Unavailable Unavailable Unavailable Plan of Treatment No Plan of Treatment Recorded Assessments Includes: Assessments for all patient encounters No Assessments Recorded Medical Equipment - Implanted Devices Includes: Current and historical Devices No Medical Equipment Recorded Medications Administered Includes: Administered Medications in patient's chart No Administered Medications Recorded Results Includes: Results from 04/18/2023 through 04/18/2024 No Results Recorded For Specified Dates History of Present Illness History of Present Illness not supported for this document type No History of Present Illness Recorded Social History No Social History Recorded - Smoking Status Unknown Medical History Includes: Medical History in patient's chart No Medical History Recorded Family History Includes: Family History in patient's chart No Family History Recorded Review of Systems Review of Systems not supported for this document type No Review of Systems Recorded Mental Status No Mental Status Recorded Functional Status No Functional Status Recorded Physical Exam Physical Exam not supported for this document type No Physical Exam Recorded Clinical Notes Includes: Signed Clinical Notes starting from 03/28/2022 No Clinical Notes Recorded
== END 2024-04-18 10:34 | disposition home or self-care (01) ==
PROVIDERS: PCP Family Medicine; Visit Provider Urology
DX: N28.89 Other specified disorders of kidney and ureter (principal)
CPT/HCPCS: 76770

== ENCOUNTER 2024-07-11 08:53 | Outpatient (CLI) | payer MEDICARE, SELFPAY ==
--- NOTE | ~2024-07-11 | CT_ITS ---
CT of the Abdomen and Pelvis: Indication: Renal mass Technique: 2.5 mm axial scans were obtained through the abdomen and pelvis prior to and following in travenous administration of 100 cc of Omnipaque 350. Dose reduction technique was used on this scan b y utilizing automated exposure control and iterative reconstruction technique. The dose-length produc t (DLP) was 596.46 mGy-cm. COMPARISON: 01/15/2024 Findings: Scans through the lung bases demonstrates stable calcified pleural plaque with mild bibasi lar atelectatic change or scarring. Stable mild bibasilar pleural thickening.. Stable 2 mm nonobstructing right renal stone. Stable 3 cm enhancing mass at the interpolar region of the left kidney, and mild hyperdensity on precontrast images. Stable distended extrarenal pelvis from the left kidney. The liver, spleen, pancreas, gallbladder, and adrenal glands are within normal limits. There are athe rosclerotic calcifications of the aorta. No lymphadenopathy. Visualized bowel loops are unremarkable.. No ascites. Impression: Stable 3 cm solid left renal mass. Renal cell carcinoma remains a consideration. Stable 2 mm nonobstructing renal stone. Reviewed, dictated and finalized at location . Impression: Stable 3 cm solid left renal mass. Renal cell carcinoma remains a consideration . Stable 2 mm nonobstructing renal stone.
--- OUTSIDE RECORDS SUMMARY | 2024-07-11 09:23 | XMS_ITS | Referral Summary ---
Author Organization [facility] [address] Address [address] [place] [address] Care Team Providers Care Large Engine Assembler Name Role Phone Garett Fitzpatrick MD Primary Care Provider Encounters Date Type Department Care Team Description 05/02/2024 9:37 AM BELT TURNER - 05/02/2024 11:59 PM BELT TURNER [facility] [address] [place] [address] Aneurysm of ascending aorta without rupture Discharge Disposition: Discharge to home or self care 05/02/2024 11:30 AM BELT TURNER Office Visit [facility] [address] [facility] Medical Office Building [address], [address] [place] [address] Samson Nolan MD Aneurysm of ascending aorta without rupture (Primary Dx) 04/29/2024 4:54 PM BELT TURNER - 04/29/2024 11:59 PM BELT TURNER Hospital Encounter [facility] [address] [place] [id number] Discharge Disposition: Discharge to home or self care from Last 3 Months Allergies No known active allergies Medications oxybutynin (DITROPAN) 5 mg tabletIndicatio ns:Urinary Urgency Take 1 tablet (5 mg total) by mouth every morning Active atorvastatin (LIPITOR) 20 mg tabletIndicatio ns:coronary artery disease,hyperli pidemia Take 1 tablet (20 mg total) by mouth every morning Active potassium chloride ER 10 mEq CR capsuleIndicati ons:hypokalemia prevention Take 2 tablet/capsule (20 mEq total) by mouth 2 (two) times a day 60 mg daily 0 Active losartan-hydroc hlorothiazide (HYZAAR) 100-25 mg [...] 1 tablet (50 mg total) by mouth copying machine repairer before breakfast 4 Active clopidogreL (PLAVIX) 75 [...] 0 11/17/2022 Coronary artery disease invo lving [place] coronary artery of [place] heart without angina pectoris 12/23/2016 Immunizations Immunization Administration Dates Next Due Influenza, Quadrivalent, Hig h Dose, Preservative Free, Intrr 12/18/2022(Deferred: Patient Refused - Per pt he will take the flu vaccine at his pcp [facility]),12/17/2022(Deferred: Patient Refused - Pt wants to [...] on file Legal Sex Male 8:05 AM BELT TURNER Gender Identity Not on file Sexual Orientation Not on file Last Filed Vital Signs Vital Sign Reading Time Taken Comments Blood Pressure 155/76 05/02/2024 10:05 AM BELT TURNER Pulse 60 05/02/2024 10:05 AM BELT TURNER Temperature 36.7 C (98 F) 05/02/2024 10:05 AM BELT TURNER Respiratory Rate 18 08/20/2023 8:57 AM CDT Oxygen Saturation 98% 05/02/2024 10:05 AM BELT TURNER Inhaled Oxygen Concentration - - Weight 80.1 kg (176 lb 9.6 oz) 05/02/2024 10:05 AM BELT TURNER Height 185.4 cm (6' 1 ) 05/02/2024 10:05 AM BELT TURNER Body Mass Index 23.3 05/02/2024 10:05 AM BELT TURNER Plan of Treatment Not on file Medical Devices Implanted Type Area Foreign Student Adviser Device Identifier Shelf Expiration Date Model / Serial / Lot [employer] Od25 Mm Full Wedge Augment Shoulder 15 D Baseplate Glenoid [id number] - [id number] - [id number] Implanted:Qty: 1 on 12/16/2022 by Esvin Nieves MD at [facility] Left: Shoulder [employer] 07/18/2027 [id number] / [id number] / [employer] Tornier Aequalis Perform 39mm Reverse Shoulder Standard Sphere Hhs861 - [id number] - [id number] Implanted:Qty: 1 on 12/16/2022 by Esvin Nieves MD at [facility] Left: Shoulder [employer] 09/02/2027 [id number] / [id number] / [employer] Aequalis Perform Reversed Od6.5 Mm L40 Mm Central Glenoid Screw Baseplate Nonsterile [id number] - [id number] Implanted:Qty: 1 on 12/16/2022 by Esvin Nieves MD at [facility] Left: Shoulder [employer] NTX009 / / [employer] Aequalis Perform Reversed 5mm 26mm Peripheral Glenoid Screw Ucb221 - [id number] Implanted:Qty: 1 on 12/16/2022 by Esvin Nieves MD at [facility] Left: Shoulder [employer] HXZ143 / / [employer] Aequalis Perform Reversed 5mm 38mm Peripheral Glenoid Screw [id number] - [id number] Implanted:Qty: 2 on 12/16/2022 by Esvin Nieves MD at [facility] Left: Shoulder [employer] GCM850 / / [employer] Insert Perform 10 Deg [id number] - [id number] - [id number] Implanted:Qty: 1 on 12/16/2022 by Esvin Nieves MD at [facility] Left: Shoulder [employer] 02/04/2027 [id number] / [id number] / [employer] Stem Perform Sz 3 Plus Humeral Long Dwx3pl - [id number] - [id number] Implanted:Qty: 1 on 12/16/2022 by Esvin Nieves MD at [facility] Left: Shoulder [employer] 06/06/2027 [id number] / [id number] / [employer] Aequalis Perform Reversed 6.5mm 35mm Central Glenoid Screw Qlk307 - [id number] Implanted:Qty: 1 on 08/18/2023 by Esvin Nieves MD at [facility] Right: Shoulder [employer] UPO466 / / [employer] Aequalis Perform Reversed 5mm 22mm Peripheral Glenoid Screw Sop902 - [id number] Implanted:Qty: 1 on 08/18/2023 by Esvin Nieves MD at [facility] Right: Shoulder [employer] [id number] / / [employer] Aequalis Perform Reversed 5mm 30mm Peripheral Glenoid Screw Ony005 - [id number] Implanted:Qty: 2 on 08/18/2023 by Esvin Nieves MD at [facility] Right: Shoulder [employer] [id number] / / [employer] Aequalis Perform Reversed 5mm 34mm Peripheral Glenoid Screw Msp916 - [id number] Implanted:Qty: 1 on 08/18/2023 by Esvin Nieves MD at [facility] Right: Shoulder [employer] QYE141 / / [employer] Tray Stem Humeral Shoulder Reverse Long Size 2 Plus Perform [id number] Dwx2pl - [id number] - [id number] Implanted:Qty: 1 on 08/18/2023 by Esvin Nieves MD at [facility] Right: Shoulder [employer] 11/04/2027 DWX2PL / [id number] / [employer] Insert Perform 10 Deg Ret [id number] - [id number] - [id number] Implanted:Qty: 1 on 08/18/2023 by Esvin Nieves MD at [facility] Right: Shoulder [employer] 06/16/2028 PDG2322 / [id number] / Vino [employer] Aequalis Perform Od25 Mm Augment 35 D Half Wedge Baseplate Glenoid Rbu838 - [id number] - [id number] Implanted:Qty: 1 on 08/18/2023 by Esvin Nieves MD at [facility] Right: Shoulder [employer] 07/06/2028 UEN422 / [id number] / [employer] Tornier Aequalis Perform Od39 Mm Lateralize Reverse Shoulder +3 Mm Sphere Glenoid Vhv875 - [id number] - [id number] Implanted:Qty: 1 on 08/18/2023 by Esvin Nieves MD at [facility] Right: Shoulder [employer] 05/21/2028 KRI845 / [id number] / Procedures Procedure Name Priority Date/Time Associated Diagnosis Comments CT CHEST WO CONTRAST Schedule Routine, Read Routine (OP Routine) 05/02/2024 9:50 AM BELT TURNER Aneurysm of ascending aorta without rupture CT BODY OUTSIDE REFERENCE Routine 04/29/2024 4:54 PM BELT TURNER from Last 3 Months Results * CT Chest WO Contrast (05/02/2024 9:50 AM BELT TURNER) Anatomical Region Laterality Modality Body N/A Computed Tomogra phy 05/06/2024 12:3 3 PM BELT TURNER Narrative 05/06/2024 12:44 PM BELT TURNER EXAM DESCRIPTION: CT CHEST WO CONTRAST REASON FOR STUDY: Aortic aneurysm suspected Aortic aneurysm suspected Dx: Aneurysm of ascending aorta without rupture TECHNIQUE: CT scan of the chest performed without intravenous contrast using helical scanning technique. Reconstructed coronal and sagittal MPR images reviewed. All images stored on PACS. Automated exposure control was used as a dose optimization technique for this examination. COMPARISON: 10/23/2023, 09/01/2023 FINDINGS: The sensitivity for detection of solid visceral lesions is diminished without the use of intravenous contrast. LUNGS: There is pleuroparenchymal scarring within the apices, right greater than left. There is some subsegmental scarring and atelectasis greatest at the inferior right upper lobe, right middle lobe and bilateral lower lobes, stable in distribution compared to the prior CT study. Dependent atelectatic changes are slightly less than on the most recent prior examination. 9 x 6 mm nodule in the lateral right upper lobe on image number 34, stable. 4 mm juxta fissural nodule within the anterior right lower lobe on image 60, stable. PLEURA: There are pleural plaques, some of which are calcified noted bilaterally. These are grossly stable in appearance compared to the prior examination including a plaque in the anterior left hemithorax measuring 1.3 x 1.0 cm. There pleural thickening noted posteriorly thoraces, stable. MEDIASTINUM/CE: The thyroid gland is unremarkable. There are scattered mediastinal nodes. Precarinal node on image 78 measures 1 cm short axis, stable from prior examination. There are postinflammatory calcifications. Assessment for hilar nodes limited on this noncontrast study. Node at the right hilum measures 1.4 cm on axial image number 87, previously 1.6 cm. There are mildly prominent left hilar nodes, also similar. The esophagus is unremarkable. HEART: The heart is enlarged. There is no significant pericardial effusion. CORONARY ARTERY CALCIFICATION: Present VASCULATURE: There is aneurysmal dilation of the ascending thoracic aorta measuring 4.3 cm at the level of the main pulmonary trunk, stable from prior examination. Atherosclerotic changes are noted. Descending thoracic aorta measures 3.2 cm at the level of the main pulmonary trunk. The main pulmonary trunk is normal in caliber. There are atherosclerotic calcifications of the thoracic aorta. AXILLA: Axillary lymphadenopathy. Scattered subcentimeter short axis dimension nodes are present. CHEST WALL: No masses. No subcutaneous air. HARDWARE/LINES/TUBES: None. UPPER ABDOMEN: Atherosclerotic changes of the abdominal aorta 2 mm nonobstructing upper pole right renal calculus. MUSCULOSKELETAL: Cervical and thoracic spondylosis with degenerative disc disease. OTHER: No other significant abnormality. IMPRESSION: Stable aneurysmal dilation of the ascending thoracic aorta measuring 4.3 cm. Stable pleural plaques, some of which are calcified. Stable pulmonary nodules. Attention on surveillance imaging recommended. Additional findings as above. THIS IS AN ELECTRONICALLY VERIFIED FINAL REPORT 05/06/2024 12:44 PM - Electronically signed by Dina Valentin M.D. TW T: Report ID: [id number] Reading Location: [id number] Procedure Note Dina Valentin MD - 05/06/2024 EXAM DESCRIPTION: CT CHEST WO CONTRAST REASON FOR STUDY: Aortic aneurysm suspected Aortic aneurysm suspected Dx: Aneurysm of ascending aorta withoutrupture TECHNIQUE: CT scan of the chest performed without intravenous contrastusing helical scanning technique. Reconstructed coronal and sagittal MPR images reviewed. All images stored on PACS. Automated exposure control was usedas a dose optimization technique for this examination. COMPARISON: 10/23/2023, 09/01/2023 FINDINGS: The sensitivity for detection of solid visceral lesions is diminished without the use of intravenous contrast. LUNGS: There is pleuroparenchymal scarring within the apices, rightgreater than left. There is some subsegmental scarring and atelectasis greatestat the inferior right upper lobe, right middle lobe and bilateral lowerlobes, stable in distribution compared to the prior CT study. Dependentatelectatic changes are slightly less than on the most recent prior examination. 9 x6 mm nodule in the lateral right upper lobe on image number 34, stable. 4 mm juxta fissural nodule within the anterior right lower lobe on image60, stable. PLEURA: There are pleural plaques, some of which are calcified noted bilaterally. These are grossly stable in appearance compared to the prior examination including a plaque in the anterior left hemithorax measuring1.3 x 1.0 cm. There pleural thickening noted posteriorly thoraces, stable. MEDIASTINUM/CE: The thyroid gland is unremarkable. There arescattered mediastinal nodes. Precarinal node on image 78 measures 1 cm short axis, stable from prior examination. There are postinflammatory calcifications. Assessment for hilar nodes limited on this noncontrast study. Node at the right hilum measures 1.4 cm on axial image number 87, previously 1.6 cm. There are mildly prominent left hilar nodes, also similar. The esophagusis unremarkable. HEART: The heart is enlarged. There is no significant pericardialeffusion. CORONARY ARTERY CALCIFICATION: Present VASCULATURE: There is aneurysmal dilation of the ascending thoracicaorta measuring 4.3 cm at the level of the main pulmonary trunk, stable fromprior examination. Atherosclerotic changes are noted. Descending thoracicaorta measures 3.2 cm at the level of the main pulmonary trunk. The mainpulmonary trunk is normal in caliber. There are atherosclerotic calcifications ofthe thoracic aorta. AXILLA: Axillary lymphadenopathy. Scattered subcentimeter short axis dimension nodes are present. CHEST WALL: No masses. No subcutaneous air. HARDWARE/LINES/TUBES: None. UPPER ABDOMEN: Atherosclerotic changes of the abdominal aorta 2 mm nonobstructing upper pole right renal calculus. MUSCULOSKELETAL: Cervical and thoracic spondylosis with degenerativedisc disease. OTHER: No other significant abnormality. IMPRESSION: Stable aneurysmal dilation of the ascending thoracic aorta measuring 4.3cm. Stable pleural plaques, some of which are calcified. Stable pulmonary nodules. Attention on surveillance imaging recommended. Additional findings as above. THIS IS AN ELECTRONICALLY VERIFIED FINAL REPORT 05/06/2024 12:44 PM - Electronically signed by Dina Valentin M.D. T: Report ID: [id number] Reading Location: [place] [address] Maria Teresa Saleh NP IMG CT PROCEDURES Final Re sult * CT Body Outside Reference (04/29/2024 4:54 PM BELT TURNER) Impressions RAD_PACS_[facility] - 04/29/2024 4:54 PM BELT TURNER These images are for Reference purposes only and have not been reviewed by [facility]. There will be no report generated by a [facility] Radiologist. Narrative [facility]_PACS[facility] - 04/29/2024 4:54 PM BELT TURNER EXAMINATION: Images For Reference Purposes Only Samson Nolan MD IMG CT PROCEDURES Final R esult RAD_PACS[facility] from Last 3 Months Insurance [employer] MEDICARE [facility] MEDIC[facility] Advance Directives For more information, please contact: [phone] * Full Code (Latest Code Status on File) Date Activated Date Inactivated Comments 08/18/2023 7:30 PM 08/20/2023 7:38 PM * Full Code Date Activated Date Inactivated Comments 12/16/2022 6:25 PM 12/18/2022 8:01 PM Care Teams Large Engine Assembler Relationship Specialty Start Date End Date Garett Fitzpatrick MD PCP - General Family Practice 12/23/16
--- OUTSIDE RECORDS SUMMARY | 2024-07-11 09:23 | XMS_ITS | Clinical Summary ---
Author Organization [facility] [address] Address [address] [place] [address] Care Team Providers Care Tubing Drier Name Role Phone Garett Fitzpatrick MD Primary [...] 1 tablet (50 mg total) by mouth agricultural produce sorter before breakfast 4 Active clopidogreL (PLAVIX) 75 [...] 0 11/17/2022 Coronary artery disease invo lving [place] coronary artery of [place] heart without angina pectoris 12/23/2016 Encounters Date Type Department Care Team Description 05/02/2024 11:30 AM CRYSTAL EVALUATOR Office Visit [facility] [address] [facility] Medical Office [address], [address] [place] [address] Samson Nolan MD Aneurysm of ascending aorta without rupture (Primary Dx) 05/02/2024 9:37 AM CRYSTAL EVALUATOR - 05/02/2024 11:59 PM CRYSTAL EVALUATOR [facility] [address] [place] [address] Aneurysm of ascending aorta without rupture Discharge Disposition: Discharge to home or self care 04/29/2024 4:54 PM CRYSTAL EVALUATOR - 04/29/2024 11:59 PM CRYSTAL EVALUATOR Hospital Encounter [facility]) [address] [place] [address] Discharge Disposition: Discharge to home or self care from Last 3 Months Immunizations Immunization Administration Dates Next Due Influenza, Quadrivalent, Hig h Dose, Preservative Free, Intrr 12/18/2022(Deferred: Patient Refused - Per pt he will take the flu vaccine at his pcp offcie),12/17/2022(Deferred: Patient Refused - Pt wants to discuss [...] on file Legal Sex Male 8:05 AM CRYSTAL EVALUATOR Gender Identity Not on file Sexual Orientation Not on file Obstetrics History Last Filed Vital Signs Vital Sign Reading Time Taken Comments Blood Pressure 155/76 05/02/2024 10:05 AM CRYSTAL EVALUATOR Pulse 60 05/02/2024 10:05 AM CRYSTAL EVALUATOR Temperature 36.7 C (98 F) 05/02/2024 10:05 AM CRYSTAL EVALUATOR Respiratory Rate 18 08/20/2023 8:57 AM CDT Oxygen Saturation 98% 05/02/2024 10:05 AM CRYSTAL EVALUATOR Inhaled Oxygen Concentration - - Weight 80.1 kg (176 lb 9.6 oz) 05/02/2024 10:05 AM CRYSTAL EVALUATOR Height 185.4 cm (6' 1 ) 05/02/2024 10:05 AM CRYSTAL EVALUATOR Body Mass Index 23.3 05/02/2024 10:05 AM CRYSTAL EVALUATOR Plan of Treatment Health Maintenance Due Date [...] 06/20/2027 06/19/2017 Medical Devices Implanted Type Area Wire Coater Device Identifier Shelf Expiration Date Model / Serial / Lot Signature Inc Od25 Mm Full Wedge Augment Shoulder 15 D Baseplate Glenoid Dui520 - [id number] - [id number] Implanted:Qty: 1 on 12/16/2022 by Esvin Nieves MD at [facility] Left: Shoulder [employer] Inc 07/18/2027 OLW343 / [id number] / Signature Inc Tornier Aequalis Perform 39mm Reverse Shoulder Standard Sphere Tge106 - [id number] - [id number] Implanted:Qty: 1 on 12/16/2022 by Esvin Nieves MD at [facility] Left: Shoulder [employer] 09/02/2027 IXL908 / [id number] / [employer] Aequalis Perform Reversed Od6.5 Mm L40 Mm Central Glenoid Screw Baseplate Nonsterile Mdd857 - [id number] Implanted:Qty: 1 on 12/16/2022 by Esvin Nieves MD at [facility] Left: Shoulder [employer] AYL555 / / [employer] Aequalis Perform Reversed 5mm 26mm Peripheral Glenoid Screw Nlh488 - [id number] Implanted:Qty: 1 on 12/16/2022 by Esvin Nieves MD at [facility] Left: Shoulder [employer] BTX906 / / [employer] Aequalis Perform Reversed 5mm 38mm Peripheral Glenoid Screw Gtn442 - [id number] Implanted:Qty: 2 on 12/16/2022 by Esvin Nieves MD at [facility] Left: Shoulder [employer] BEQ261 / / [employer] Insert Perform 10 Deg Dpc1051 Zvm5872 - [id number] - [id number] Implanted:Qty: 1 on 12/16/2022 by Esvin Nieves MD at [facility] Left: Shoulder [employer] 02/04/2027 TYE0019 / [id number] / [employer] Stem Perform Sz 3 Plus Humeral Long Dwx3pl - [id number] - [id number] Implanted:Qty: 1 on 12/16/2022 by Esvin Nieves MD at [facility] Left: Shoulder [employer] 06/06/2027 DWX3PL / [id number] / [employer] Aequalis Perform Reversed 6.5mm 35mm Central Glenoid Screw Pna711 - [id number] Implanted:Qty: 1 on 08/18/2023 by Esvin Nieves MD at [facility] Right: Shoulder [employer] MQT500 / / [employer] Aequalis Perform Reversed 5mm 22mm Peripheral Glenoid Screw Wwq150 - [id number] Implanted:Qty: 1 on 08/18/2023 by Esvin Nieves MD at [facility] Right: Shoulder [employer] OZL909 / / Aug[employer] Inc Aequalis Perform Reversed 5mm 30mm Peripheral Glenoid Screw Qef388 - [id number] Implanted:Qty: 2 on 08/18/2023 by Esvin Neives MD at [facility] Right: Shoulder [employer] HMJ516 / / Aug[employer] Aequalis Perform Reversed 5mm 34mm Peripheral Glenoid Screw Yfi363 - [id number] Implanted:Qty: 1 on 08/18/2023 by Esvin Nieves MD at [facility] Right: Shoulder Augment [employer] POS983 / / Sub[employer] Inc Tray Stem Humeral Shoulder Reverse Long Size 2 Plus Perform 4p16a97cw Dwx2pl - [id number] - [id number] Implanted:Qty: 1 on 08/18/2023 by Esvin Nieves MD at [facility] Right: Shoulder Aug[employer] Inc 11/04/2027 DWX2PL / [id number] / Subtext [employer] Inc Insert Perform 10 Deg Ret Taf4525 Lik1610 - [id number] - [id number] Implanted:Qty: 1 on 08/18/2023 by Esvin Nieves MD at [facility] Right: Shoulder Augment [employer] Inc 06/16/2028 NQH6933 / [id number] / Augment [employer] Aequalis Perform Od25 Mm Augment 35 D Half Wedge Baseplate Glenoid Nzp567 - [id number] - [id number] Implanted:Qty: 1 on 08/18/2023 by Esvin Nieves MD at [facility] Right: Shoulder [employer] 07/06/2028 VDB877 / [id number] / Augment [employer] Inc Tornier Aequalis Perform Od39 Mm Lateralize Reverse Shoulder +3 Mm Sphere Glenoid Xmr486 - [id number] - [id number] Implanted:Qty: 1 on 08/18/2023 by Esvin Nieves MD at [facility] Right: Shoulder [employer] 05/21/2028 WUV937 / [id number] / Procedures Procedure Name Priority Date/Time Associated Diagnosis Comments CT CHEST WO CONTRAST Schedule Routine, Read Routine (OP Routine) 05/02/2024 9:50 AM CRYSTAL EVALUATOR Aneurysm of ascending aorta without rupture CT BODY OUTSIDE REFERENCE Routine 04/29/2024 4:54 PM CRYSTAL EVALUATOR from Last 3 Months Results * CT Chest WO Contrast (05/02/2024 9:50 AM CRYSTAL EVALUATOR) Anatomical Region Laterality Modality Body N/A Computed Tomogra phy 05/06/2024 12:3 3 PM CRYSTAL EVALUATOR Narrative 05/06/2024 12:44 PM CRYSTAL EVALUATOR EXAM DESCRIPTION: CT CHEST WO CONTRAST REASON [...] Dina Valentin M.D. TW T: Report ID: [id number] Reading Location: [id number] Procedure Note Dina Valentin MD - 05/06/2024 [...] Dina Valentin M.D. TW T: Report ID: [id number] Reading Location: [id number] Maria Teresa Saleh NP IMG CT PROCEDURES Final Re sult * CT Body Outside Reference (04/29/2024 4:54 PM CRYSTAL EVALUATOR) Impressions RAD_P[facility] - 04/29/2024 4:54 PM CRYSTAL EVALUATOR These images are for Reference purposes only and have not been reviewed by [facility]. There will be no report generated by a [facility] Radiologist. Narrative RAD_PACS[facility] - 04/29/2024 4:54 PM CRYSTAL EVALUATOR EXAMINATION: Images For Reference Purposes Only us Samson Nolan MD IMG CT PROCEDURES Final R esult [facility] from Last 3 Months Insurance [facility] MEDICARE AET MEDICARE [employer] MEDICARE Advance Directives For more information, please contact: [phone] * Full Code (Latest Code Status on File) Date Activated Date Inactivated Comments 08/18/2023 7:30 PM 08/20/2023 7:38 PM * Full Code Date Activated Date Inactivated Comments 12/16/2022 6:25 PM 12/18/2022 8:01 PM Care Teams Tubing Drier Relationship Specialty Start Date End Date Garett Fitzpatrick MD PCP - General Family Practice 12/23/16
--- OUTSIDE RECORDS SUMMARY | 2024-07-11 09:23 | XMS_ITS | Clinical Summary ---
Author Organization [facility] Address [facility] [place] [address] Care Team Providers Care Ends Down Checker Name Role Phone Unavailable Primary Care Provider [...] Td Vaccines ( 1 - Tdap) 02/17/1954 Pneumococcal Vaccine: 50+ Ye ars (1 of 1 - PCV) 1987 Zoster Vaccines (1 of 2) 1987 RSV Immunization or 60+ Years (1 - 1-dose 75+ series) 02/17/2012 COVID-19 Vaccine ( - 2023-2 5 season) 2023 Meningococcal B Vaccine Aged Out No l onger eligible based on patient's age to complete this topic Meningococcal Vaccine Aged Out No zonia leonela eligible based on patient's age to complete this topic RSV Immunizations Under 20 Months Aged Out No longer eligible based on patient's age to complete this topic
[2024-07-11 09:26] LABS: Estimated Glomerular Filt Rate 48
== END 2024-07-11 08:54 | disposition home or self-care (01) ==
PROVIDERS: PCP Family Medicine; Visit Provider Urology
DX: N28.89 Other specified disorders of kidney and ureter (principal); N20.0 Calculus of kidney
CPT/HCPCS: 74178; Q9967

== ENCOUNTER 2024-07-19 10:36 | Outpatient (CLI) | payer MEDICARE, SELFPAY ==
--- OUTSIDE RECORDS SUMMARY | 2024-07-19 10:48 | XMS_ITS | Referral Summary ---
Author Organization [facility] [address] Address [address] [place] [address] Care Team Providers Care Feather Washer Name Role Phone Garett Fitzpatrick MD Primary Care Provider Encounters Date Type Department Care Team Description 05/02/2024 9:37 AM GOLF CLUB WEIGHER - 05/02/2024 11:59 PM G[employer]F [employer] WEIGHER [facility] [address] [place] [address] Aneurysm of ascending aorta without rupture Discharge Disposition: Discharge to home or self care 05/02/2024 11:30 AM GOLF CLUB WEIGHER Office Visit [facility] [address] [facility] [address] [place] [address] Samson Nolan MD Aneurysm of ascending aorta without rupture (Primary Dx) 04/29/2024 4:54 PM GOLF CLUB WEIGHER - 04/29/2024 11:59 PM GOLF [employer] WEIGHER Hospital Encounter [facility] [address] [place] [id number] Discharge Disposition: Discharge to home or self [...] 1 tablet (50 mg total) by mouth registered medical assistant before breakfast 4 Active clopidogreL (PLAVIX) 75 [...] 0 11/17/2022 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 12/23/2016 Immunizations Immunization Administration Dates Next Due Influenza, Quadrivalent, Hig h Dose, Preservative Free, Intrr 12/18/2022(Deferred: Patient Refused - Per pt he will take the flu vaccine at his pcp [facility]),12/17/2022(Deferred: Patient Refused - Pt wants to discuss [...] on file Legal Sex Male 8:05 AM GOLF CL[employer] WEIGHER Gender Identity Not on file Sexual Orientation Not on file Last Filed Vital Signs Vital Sign Reading Time Taken Comments Blood Pressure 155/76 05/02/2024 10:05 AM GOLF CLUB WEIGHER Pulse 60 05/02/2024 10:05 AM GOLF [employer] WEIGHER Temperature 36.7 C (98 F) 05/02/2024 10:05 AM GOLF [employer] WEIGHER Respiratory Rate 18 08/20/2023 8:57 AM CDT Oxygen Saturation 98% 05/02/2024 10:05 AM GOLF CLUB WEIGHER Inhaled Oxygen Concentration - - Weight 80.1 kg (176 lb 9.6 oz) 05/02/2024 10:05 AM GOLF CLUB WEIGHER Height 185.4 cm (6' 1 ) 05/02/2024 10:05 AM GOLF CLUB WEIGHER Body Mass Index 23.3 05/02/2024 10:05 AM GOLF [employer] WEIGHER Plan of Treatment Not on file Medical Devices Implanted Type Area Systems Accountant Device Identifier Shelf Expiration Date Model / Serial / Lot [employer] Od25 Mm Full Wedge Augment Shoulder 15 D Baseplate Glenoid [id number] - [id number] - [id number] Implanted:Qty: 1 on 12/16/2022 by Esvin Nieves MD at [facility] Left: Shoulder [employer] 07/18/2027 [id number] / [id number] / [employer] Tornier Aequalis Perform 39mm Reverse Shoulder Standard Sphere Qah290 - [id number] - [id number] Implanted:Qty: 1 on 12/16/2022 by Esvin Nieves MD at [facility] Left: Shoulder [employer] 09/02/2027 KQI360 / [id number] / [employer] Aequalis Perform Reversed Od6.5 Mm L40 Mm Central Glenoid Screw Baseplate Nonsterile Pbz153 - [id number] Implanted:Qty: 1 on 12/16/2022 by Esvin Nieves MD at [facility] Left: Shoulder [employer] [id number] / / [employer] Aequalis Perform Reversed 5mm 26mm Peripheral Glenoid Screw Hxp954 - [id number] Implanted:Qty: 1 on 12/16/2022 by Esvin Nieves MD at [facility] Left: Shoulder [employer] [id number] / / [employer] Aequalis Perform Reversed 5mm 38mm Peripheral Glenoid Screw Fym478 - [id number] Implanted:Qty: 2 on 12/16/2022 by Esvin Nieves MD at [facility] Left: Shoulder [employer] [id number] / / [employer] Insert Perform 10 Deg Edh5784 Zil3674 - [id number] - [id number] Implanted:Qty: 1 on 12/16/2022 by Esvin Nieves MD at [facility] Left: Shoulder [employer] 02/04/2027 [id number] / [id number] / [employer] Stem Perform Sz 3 Plus Humeral Long Dwx3pl - [id number] - [id number] Implanted:Qty: 1 on 12/16/2022 by Esvin Nieves MD at [facility] Left: Shoulder [employer] 06/06/2027 [id number] / [id number] / [employer] Aequalis Perform Reversed 6.5mm 35mm Central Glenoid Screw Muq189 - [id number] Implanted:Qty: 1 on 08/18/2023 by Esvin Nieves MD at [facility] Right: Shoulder [employer] KWV122 / / [employer] Aequalis Perform Reversed 5mm 22mm Peripheral Glenoid Screw Avv391 - [id number] Implanted:Qty: 1 on 08/18/2023 by Esvin Nieves MD at [facility] Right: Shoulder [employer] IYG684 / / [employer] Aequalis Perform Reversed 5mm 30mm Peripheral Glenoid Screw Arr066 - [id number] Implanted:Qty: 2 on 08/18/2023 by Esvin Nieves MD at [facility] Right: Shoulder [employer] QRD409 / / [employer] Aequalis Perform Reversed 5mm 34mm Peripheral Glenoid Screw Kmb272 - [id number] Implanted:Qty: 1 on 08/18/2023 by Esvin Nieves MD at [facility] Right: Shoulder [employer] LBT306 / / [employer] Tray Stem Humeral Shoulder Reverse Long Size 2 Plus Perform 2p88x10ou Dwx2pl - [id number] - [id number] Implanted:Qty: 1 on 08/18/2023 by Esvin Nieves MD at [facility] Right: Shoulder [employer] 11/04/2027 DWX2PL / [id number] / [employer] Insert Perform 10 Deg Ret Fma4733 Upm2295 - [id number] - [id number] Implanted:Qty: 1 on 08/18/2023 by Esvin Nieves MD at [facility] Right: Shoulder [employer] 06/16/2028 PIC7545 / [id number] / [employer] Aequalis Perform Od25 Mm Augment 35 D Half Wedge Baseplate Glenoid Xlb955 - [id number] - [id number] Implanted:Qty: 1 on 08/18/2023 by Esvin Nieves MD at [facility] Right: Shoulder [employer] 07/06/2028 LDT324 / [id number] / [employer] Tornier Aequalis Perform Od39 Mm Lateralize Reverse Shoulder +3 Mm Sphere Glenoid Xtu996 - [id number] - [id number] Implanted:Qty: 1 on 08/18/2023 by Esvin Nieves MD at [facility] Right: Shoulder [employer] 05/21/2028 WZX062 / [id number] / Procedures Procedure Name Priority Date/Time Associated Diagnosis Comments CT CHEST WO CONTRAST Schedule Routine, Read Routine (OP Routine) 05/02/2024 9:50 AM [employer] WEIGHER Aneurysm of ascending aorta without rupture CT BODY OUTSIDE REFERENCE Routine 04/29/2024 4:54 PM G[employer] WEIGHER from Last 3 Months Results * CT Chest WO Contrast (05/02/2024 9:50 AM [employer] WEIGHER) Anatomical Region Laterality Modality Body N/A Computed Tomogra phy 05/06/2024 12:3 3 PM [employer] WEIGHER Narrative 05/06/2024 12:44 PM [employer] WEIGHER EXAM DESCRIPTION: CT CHEST WO CONTRAST REASON [...] Dina Valentin M.D. TW T: Report ID: [id number] Reading Location: [id number] Procedure Note Dina Valentin MD - 05/06/2024 [...] by Dina Valentin M.D. T: Report ID: [id number] Reading Location: [place] [address] Maria Teresa Saleh NP IMG CT PROCEDURES Final Re sult * CT Body Outside Reference (04/29/2024 4:54 PM G[employer]F [employer] WEIGHER) Impressions RAD_PACS[facility] - 04/29/2024 4:54 PM GOLF [employer] WEIGHER These images are for Reference purposes only and have not been reviewed by [facility]. There will be no report generated by a [facility] Radiologist. Narrative [facility] - 04/29/2024 4:54 PM GOLF [employer] WEIGHER EXAMINATION: Images For Reference Purposes Only Samson Nolan MD IMG CT PROCEDURES Final R esult [facility] from Last 3 Months Insurance A[employer] MEDICARE COUNT INCLUDES THE [facility] MEDICARE COUNT INCLUDES THE [facility] MEDICARE Advance Directives For more information, please contact: [phone] * Full Code (Latest Code Status on File) Date Activated Date Inactivated Comments 08/18/2023 7:30 PM 08/20/2023 7:38 PM * Full Code Date Activated Date Inactivated Comments 12/16/2022 6:25 PM 12/18/2022 8:01 PM Care Teams Feather Washer Relationship Specialty Start Date End Date Garett Fitzpatrick MD PCP - General Family Practice 12/23/16
--- OUTSIDE RECORDS SUMMARY | 2024-07-19 10:48 | XMS_ITS | Clinical Summary ---
Author Organization [facility] [address] Address [address] [place] [address] Care Team Providers Care Mechanist Name Role Phone Garett Fitzpatrick MD Primary [...] 1 tablet (50 mg total) by mouth early childhood teacher before breakfast 4 Active clopidogreL (PLAVIX) 75 [...] 0 11/17/2022 Coronary artery disease invo lving grayling coronary artery of grayling heart without angina pectoris 12/23/2016 Encounters Date Type Department Care Team Description 05/02/2024 11:30 AM BIODIESEL PRODUCTION ASSOCIATE Office Visit [facility] [address] [facility] [address], [address] [place] [address] Samson Nolan MD Aneurysm of ascending aorta without rupture (Primary Dx) 05/02/2024 9:37 AM BIODIESEL PRODUCTION ASSOCIATE - 05/02/2024 11:59 PM BIODIESEL PRODUCTION ASSOCIATE Hospital [facility] [address] [place] [address] Aneurysm of ascending aorta without rupture Discharge Disposition: Discharge to home or self care 04/29/2024 4:54 PM BIODIESEL PRODUCTION ASSOCIATE - 04/29/2024 11:59 PM BIODIESEL PRODUCTION ASSOCIATE Hospital Encounter [facility] [address] [place] [address] Discharge Disposition: Discharge to home or self [...] on file Legal Sex Male 8:05 AM BIODIESEL PRODUCTION ASSOCIATE Gender Identity Not on file Sexual Orientation Not on file Obstetrics History Last Filed Vital Signs Vital Sign Reading Time Taken Comments Blood Pressure 155/76 05/02/2024 10:05 AM BIODIESEL PRODUCTION ASSOCIATE Pulse 60 05/02/2024 10:05 AM BIODIESEL PRODUCTION ASSOCIATE Temperature 36.7 C (98 F) 05/02/2024 10:05 AM BIODIESEL PRODUCTION ASSOCIATE Respiratory Rate 18 08/20/2023 8:57 AM CDT Oxygen Saturation 98% 05/02/2024 10:05 AM BIODIESEL PRODUCTION ASSOCIATE Inhaled Oxygen Concentration - - Weight 80.1 kg (176 lb 9.6 oz) 05/02/2024 10:05 AM BIODIESEL PRODUCTION ASSOCIATE Height 185.4 cm (6' 1 ) 05/02/2024 10:05 AM BIODIESEL PRODUCTION ASSOCIATE Body Mass Index 23.3 05/02/2024 10:05 AM BIODIESEL PRODUCTION ASSOCIATE Plan of Treatment Health Maintenance Due Date [...] 06/20/2027 06/19/2017 Medical Devices Implanted Type Area Otr Flatbed Driver Device Identifier Shelf Expiration Date Model / Serial / Lot [employer] Od25 Mm Full Wedge Augment Shoulder 15 D Baseplate Glenoid [id number] - [id number] - [id number] Implanted:Qty: 1 on 12/16/2022 by Esvin Nieves MD at [facility] Left: Shoulder [employer] 07/18/2027 KEJ096 / [id number] / [employer] Tornier Aequalis Perform 39mm Reverse Shoulder Standard Sphere Yev508 - [id number] - [id number] Implanted:Qty: 1 on 12/16/2022 by Esvin Nieves MD at [facility] Left: Shoulder [employer] 09/02/2027 MHT148 / [id number] / [employer] Aequalis Perform Reversed Od6.5 Mm L40 Mm Central Glenoid Screw Baseplate Nonsterile Lsx748 - [id number] Implanted:Qty: 1 on 12/16/2022 by Esvin Nieves MD at [facility] Left: Shoulder [employer] DEZ485 / / [employer] Aequalis Perform Reversed 5mm 26mm Peripheral Glenoid Screw Mxr649 - [id number] Implanted:Qty: 1 on 12/16/2022 by Esvin Nieves MD at [facility] Left: Shoulder [employer] NWZ248 / / [employer] Aequalis Perform Reversed 5mm 38mm Peripheral Glenoid Screw Rre860 - [id number] Implanted:Qty: 2 on 12/16/2022 by Esvin Nieves MD at [facility] Left: Shoulder [employer] ONM379 / / [employer] Insert Perform 10 Deg Uzh0858 Tpy5999 - [id number] - [id number] Implanted:Qty: 1 on 12/16/2022 by Esvin Nieves MD at [facility] Left: Shoulder [employer] 02/04/2027 SFZ8391 / [id number] / [employer] Stem Perform Sz 3 Plus Humeral Long Dwx3pl - [id number] - [id number] Implanted:Qty: 1 on 12/16/2022 by Esvin Nieves MD at [facility] Left: Shoulder [employer] 06/06/2027 DWX3PL / [id number] / [employer] Aequalis Perform Reversed 6.5mm 35mm Central Glenoid Screw Mbk383 - [id number] Implanted:Qty: 1 on 08/18/2023 by Esvin Nieves MD at [facility] Right: Shoulder [employer] BWS733 / / [employer] Aequalis Perform Reversed 5mm 22mm Peripheral Glenoid Screw Jpx645 - [id number] Implanted:Qty: 1 on 08/18/2023 by Esvin Nieves MD at [facility] Right: Shoulder [employer] DRB267 / / [employer] Aequalis Perform Reversed 5mm 30mm Peripheral Glenoid Screw Tsi862 - [id number] Implanted:Qty: 2 on 08/18/2023 by Esvin Nieves MD at [facility] Right: Shoulder [employer] GKM850 / / [employer] Aequalis Perform Reversed 5mm 34mm Peripheral Glenoid Screw Pxz810 - [id number] Implanted:Qty: 1 on 08/18/2023 by Esvin Nieves MD at [facility] Right: Shoulder [employer] KND162 / / [employer] Tray Stem Humeral Shoulder Reverse Long Size 2 Plus Perform [id number] Dwx2pl - [id number] - [id number] Implanted:Qty: 1 on 08/18/2023 by Esvin Nieves MD at [facility] Right: Shoulder [employer] 11/04/2027 DWX2PL / [id number] / [employer] Insert Perform 10 Deg Ret Xfj4850 Xky5596 - [id number] - [id number] Implanted:Qty: 1 on 08/18/2023 by Esvin Nieves MD at [facility] Right: Shoulder [employer] 06/16/2028 DFX7284 / [id number] / [employer] Aequalis Perform Od25 Mm Augment 35 D Half Wedge Baseplate Glenoid Hwc248 - [id number] - [id number] Implanted:Qty: 1 on 08/18/2023 by Esvin Nieves MD at [facility] Right: Shoulder [employer] 07/06/2028 VXG012 / [id number] / [employer] Tornier Aequalis Perform Od39 Mm Lateralize Reverse Shoulder +3 Mm Sphere Glenoid Nri060 - [id number] - [id number] Implanted:Qty: 1 on 08/18/2023 by Esvin Nieves MD at [facility] Right: Shoulder [employer] 05/21/2028 VEL221 / [id number] / Procedures Procedure Name Priority Date/Time Associated Diagnosis Comments CT CHEST WO CONTRAST Schedule Routine, Read Routine (OP Routine) 05/02/2024 9:50 AM BIODIESEL PRODUCTION ASSOCIATE Aneurysm of ascending aorta without rupture CT BODY OUTSIDE REFERENCE Routine 04/29/2024 4:54 PM BIODIESEL PRODUCTION ASSOCIATE from Last 3 Months Results * CT Chest WO Contrast (05/02/2024 9:50 AM BIODIESEL PRODUCTION ASSOCIATE) Anatomical Region Laterality Modality Body N/A Computed Tomogra phy 05/06/2024 12:3 3 PM BIODIESEL PRODUCTION ASSOCIATE Narrative 05/06/2024 12:44 PM BIODIESEL PRODUCTION ASSOCIATE EXAM DESCRIPTION: CT CHEST WO CONTRAST REASON [...] Dina Valentin M.D. TW T: Report ID: [id number] Reading Location: [id number] Procedure Note Dina Valentin MD - 05/06/2024 [...] Dina Valentin M.D. TW T: Report ID: [id number] Reading Location: [id number] Maria Teresa Saleh NP IMG CT PROCEDURES Final Re sult * CT Body Outside Reference (04/29/2024 4:54 PM BIODIESEL PRODUCTION ASSOCIATE) Impressions [facility] - 04/29/2024 4:54 PM BIODIESEL PRODUCTION ASSOCIATE These images are for Reference purposes only and have not been reviewed by [facility]. There will be no report generated by a [facility] Radiologist. Narrative RAD_PACS[facility] - 04/29/2024 4:54 PM BIODIESEL PRODUCTION ASSOCIATE EXAMINATION: Images For Reference Purposes Only us Samson Nolan MD IMG CT PROCEDURES Final R esult [facility] from Last 3 Months Insurance [facility] MEDICARE AET MEDICARE AETNA MEDICARE Advance Directives For more information, please contact: [phone] * Full Code (Latest Code Status on File) Date Activated Date Inactivated Comments 08/18/2023 7:30 PM 08/20/2023 7:38 PM * Full Code Date Activated Date Inactivated Comments 12/16/2022 6:25 PM 12/18/2022 8:01 PM Care Teams Mechanist Relationship Specialty Start Date End Date Garett Fitzpatrick MD PCP - General Family Practice 12/23/16
--- OUTSIDE RECORDS SUMMARY | 2024-07-19 10:48 | XMS_ITS | Clinical Summary ---
Author Organization [facility] Address [facility] [place] [address] Care Team Providers Care Baseball Player Name Role Phone Unavailable Primary Care Provider [...]
[2024-07-19 13:14] LABS: Basophils Percent Auto 0.6 % (0.2-1.2); Eosinophils Absolute Auto 0.1 K/mm3 (0-0.3); Eosinophils Percent Auto 2.2 % (0-4.4); Hemoglobin 11.9 g/dL (14.0-18.0); Immature Granulocyte Absolute 0.04 K/mm3 (0.00-0.031); Immature Granulocyte Percent A 0.6 % (0-0.5); Lymphocytes Absolute Auto 1.29 K/mm3 (0.9-3.2); Lymphocytes Percent Auto 20.4 % (18.3-44.2); Mean Corpuscular HGB Conc 32.2 g/dl (32-36); Mean Corpuscular Hemoglobin 29.2 pg (26-34); Mean Corpuscular Volume 90.9 fl (80-100); Mean Platelet Volume 11.2 fl (7.4-10.4); Monocytes Absolute Auto 0.7 K/mm3 (0.1-0.6); Monocytes Percent Auto 11.7 % (2.6-8.5); Neutrophils Absolute Auto 4.1 K/mm3 (1.3-6.7); Neutrophils Percent Auto 64.5 % (45.5-73.1); Platelet Count Result 204 k/mm3 (150-375); Red Blood Count 4.07 M/mm3 (4.6-6.20); White Blood Count 6.3 K/mm3 (4.5-10.0)
[2024-07-19 14:15] LABS: Alanine Aminotransferase 28 U/L (6-50); Albumin Level 4.4 g/dL (3.5-5.1); Alkaline Phosphatase 89 U/L (38-126); Anion Gap 8 mmol/L (4-12); Aspartate Amino Transferase 56 U/L (17-59); Blood Urea Nitrogen 15 mg/dL (9-20); Carbon Dioxide 31 mmol/L (22-30); Chloride 102 mmol/L (98-107); Cholesterol 168 mg/dL (0-200); Estimated Glomerular Filt Rate > 60; Glucose 92 mg/dL (65-110); HDL Direct 55 mg/dL; Potassium 3.4 mmol/L (3.4-5.0); Sodium 141 mmol/L (137-145); Triglycerides 79 mg/dL (<150)
[2024-07-19 14:37] LABS: LDL Cholesterol Direct 63 mg/dL
[2024-07-19 15:44] LABS: Folic Acid > 20.0 ng/mL (2.76->20); Vitamin B12 > 1000.0 pg/mL (239-931)
[2024-07-19 17:36] LABS: Iron 79 ug/dL (49-181)
[2024-07-19 17:48] LABS: Percent Iron Saturation 27 % (20-50)
[2024-07-19 22:28] LABS: Hemoglobin A1C 5.2 % (<5.7)
[2024-07-20 04:49] LABS: Free T4 Free Thyroxine Reflex 1.04 ng/dL (0.78-2.19)
[2024-07-20 05:41] LABS: Total Triiodothyronine (T3) 1.38 NG/ML (0.97-1.69)
== END 2024-07-19 10:37 | disposition home or self-care (01) ==
LOC: ANHGOSHLAB 10:37
PROVIDERS: PCP Family Medicine; Visit Provider Family Medicine
DX: D64.9 Anemia, unspecified (principal); I10 Essential (primary) hypertension; R73.9 Hyperglycemia, unspecified; E78.5 Hyperlipidemia, unspecified; E55.9 Vitamin D deficiency, unspecified
CPT/HCPCS: 36415; 80053; 80061; 82306; 82607; 82728; 82746; 83036; 83540; 83550; 84439; 84443; 84480; 85025

== ENCOUNTER 2025-01-31 12:33 | Outpatient (CLI) | payer MEDICARE, SELFPAY ==
--- OUTSIDE RECORDS SUMMARY | 2025-01-31 13:54 | XMS_ITS | Clinical Summary ---
Author Organization [facility] [place] [address] Address [address] [place] [address] Care Team Providers Care Alodize Machine Operator Name Role Phone Garett Fitzpatrick MD Primary [...] 1 tablet (50 mg total) by mouth holder pile driving before breakfast 4 Active clopidogreL (PLAVIX) 75 [...] 0 11/17/2022 Coronary artery disease invo lving [place] coronary artery of [place] heart without angina pectoris 12/23/2016 Immunizations Immunization [...] on file Legal Sex Male 8:05 AM DEGREASING WHEEL OPERATOR Gender Identity Not on file Sexual Orientation Not on file Last Filed Vital Signs Vital Sign Reading Time Taken Comments Blood Pressure 155/76 05/02/2024 10:05 AM DEGREASING WHEEL OPERATOR Pulse 60 05/02/2024 10:05 AM DEGREASING WHEEL OPERATOR Temperature 36.7 C (98 F) 05/02/2024 10:05 AM DEGREASING WHEEL OPERATOR Respiratory Rate 18 08/20/2023 8:57 AM CDT Oxygen Saturation 98% 05/02/2024 10:05 AM DEGREASING WHEEL OPERATOR Inhaled Oxygen Concentration - - Weight 80.1 kg (176 lb 9.6 oz) 05/02/2024 10:05 AM DEGREASING WHEEL OPERATOR Height 185.4 cm (6' 1) 05/02/2024 10:05 AM DEGREASING WHEEL OPERATOR Body Mass Index 23.3 05/02/2024 10:05 AM DEGREASING WHEEL OPERATOR Plan of Treatment Health Maintenance Due Date Last Done Comments Depression Screening 1935 Hepatitis B Screening 1953 Zoster Vaccine (1 of 2) 1987 Well Visit 65+ 2002 Pneumococcal vaccine 65+ (2 of 2 - PCV) 12/08/2011 12/07/2010, 12/20/2002 Fall Risk Assessment 08/19/2024 08/20/2023 Influenza Vaccine (#1) 2024 9, 12/07/2017, 12/12/2016, Additional history exists DTaP/Tdap/Td Vaccine (2 - Td or Tdap) 06/20/2027 06/19/2017 Medical Devices Implanted Type Area Employment Assistant Device Identifier Shelf Expiration Date Model / Serial / Lot [employer] Od25 Mm Full Wedge Augment Shoulder 15 D Baseplate Glenoid [id number] - [id number] - [id number] Implanted:Qty: 1 on 12/16/2022 by Esvin Nieves MD at [facility] Left: Shoulder [employer] 07/18/2027 [id number] / [id number] / [employer] Tornier Aequalis Perform 39mm Reverse Shoulder Standard Sphere [id number] - [id number] - [id number] Implanted:Qty: 1 on 12/16/2022 by Esvin Nieves MD at [facility] Left: Shoulder [employer] 09/02/2027 [id number] / [id number] / [employer] Aequalis Perform Reversed Od6.5 Mm L40 Mm Central Glenoid Screw Baseplate Nonsterile [id number] - [id number] Implanted:Qty: 1 on 12/16/2022 by Esvin Nieves MD at [facility] Left: Shoulder [employer] ZIV779 / / [employer] Aequalis Perform Reversed 5mm 26mm Peripheral Glenoid Screw Mdl736 - [id number] Implanted:Qty: 1 on 12/16/2022 by Esvin Nieves MD at [facility] Left: Shoulder [employer] [id number] / / [employer] Aequalis Perform Reversed 5mm 38mm Peripheral Glenoid Screw [id number] - [id number] Implanted:Qty: 2 on 12/16/2022 by Esvin Nieves MD at [facility] Left: Shoulder [employer] ZYM438 / / [employer] Insert Perform 10 Deg [id number] [id number] - [id number] - [id number] Implanted:Qty: 1 on 12/16/2022 by Esvin Nieves MD at [facility] Left: Shoulder [employer] 02/04/2027 [id number] / [id number] / [employer] Stem Perform Sz 3 Plus Humeral Long Dwx3pl - [id number] - [id number] Implanted:Qty: 1 on 12/16/2022 by Esvin Nieves MD at [facility] Left: Shoulder [employer] 06/06/2027 [id number] / [id number] / [employer] Aequalis Perform Reversed 6.5mm 35mm Central Glenoid Screw Hvr751 - [id number] Implanted:Qty: 1 on 08/18/2023 by Esvin Nieves MD at [facility] Right: Shoulder [employer] [id number] / / [employer] Aequalis Perform Reversed 5mm 22mm Peripheral Glenoid Screw Ila785 - [id number] Implanted:Qty: 1 on 08/18/2023 by Esvin Nieves MD at [facility] Right: Shoulder [employer] [id number] / / [employer] Aequalis Perform Reversed 5mm 30mm Peripheral Glenoid Screw Nka655 - [id number] Implanted:Qty: 2 on 08/18/2023 by Esvin Nieves MD at [facility] Right: Shoulder [employer] SQH484 / / [employer] Aequalis Perform Reversed 5mm 34mm Peripheral Glenoid Screw Zqc711 - [id number] Implanted:Qty: 1 on 08/18/2023 by Esivn Nieves MD at [facility] Right: Shoulder [employer] HRG262 / / [employer] Tray Stem Humeral Shoulder Reverse Long Size 2 Plus Perform [id number] Dwx2pl - [id number] - [id number] Implanted:Qty: 1 on 08/18/2023 by Esvin Nieves MD at [facility] Right: Shoulder [employer] 11/04/2027 [id number] / [id number] / [employer] Insert Perform 10 Deg Ret [id number] [id number] - [id number] - [id number] Implanted:Qty: 1 on 08/18/2023 by Esvin Nieves MD at [facility] Right: Shoulder [employer] 06/16/2028 [id number] / [id number] / [employer] Aequalis Perform Od25 Mm Augment 35 D Half Wedge Baseplate Glenoid Ytb836 - [id number] - [id number] Implanted:Qty: 1 on 08/18/2023 by Esvin Nieves MD at [facility] Right: Shoulder [employer] 07/06/2028 [id number] / [id number] / [employer] Tornier Aequalis Perform Od39 Mm Lateralize Reverse Shoulder +3 Mm Sphere Glenoid Gns793 - [id number] - [id number] Implanted:Qty: 1 on 08/18/2023 by Esvin Nieves MD at [facility] Right: Shoulder [employer] 05/21/2028 MTD257 / [id number] / Insurance T MEDICARE AETNA MEDICARE AETNA MEDICARE Advance Directives For more information, please contact: [phone] * Full Code (Latest Code Status on File) Date Activated Date Inactivated Comments 08/18/2023 7:30 PM 08/20/2023 7:38 PM * Full Code Date Activated Date Inactivated Comments 12/16/2022 6:25 PM 12/18/2022 8:01 PM Care Teams Alodize Machine Operator Relationship Specialty Start Date End Date Garett Fitzpatrick MD PCP - General Family Practice 12/23/16
--- OUTSIDE RECORDS SUMMARY | 2025-01-31 13:54 | XMS_ITS | Clinical Summary ---
Author Organization [facility] Address [address] [place] [address] Care Team Providers Care Counseling Services Manager Name Role Phone Unavailable Primary Care Provider [...] 75+ series) 02/17/2012 COVID-19 Vaccine ( - 2024-2 6 season) 2024 Influenza Adult (#1) 2024 Hepatitis A Vaccines Aged Out No long er eligible based on patient's age to complete this topic Meningococcal B Vaccine Aged Out No l onger eligible based on patient's age to complete this topic Meningococcal Vaccine Aged Out No zonia leonela eligible based on patient's age to complete this topic RSV Immunizations Under 20 Months Aged Out No longer eligible based on patient's age to complete this topic
[2025-01-31 19:58] LABS: Alanine Aminotransferase 19 U/L (6-50); Albumin Level 4.1 g/dL (3.5-5.1); Alkaline Phosphatase 81 U/L (38-126); Anion Gap 5 mmol/L (4-12); Aspartate Amino Transferase 55 U/L (17-59); Bilirubin,Total 0.5 mg/dL (0.2-1.3); Blood Urea Nitrogen 18 mg/dL (9-20); Calcium 9.3 mg/dL (8.4-10.2); Carbon Dioxide 30 mmol/L (22-30); Chloride 104 mmol/L (98-107); Estimated Glomerular Filt Rate > 60; Glucose 76 mg/dL (65-110); Potassium 3.8 mmol/L (3.4-5.0); Sodium 139 mmol/L (137-145); Total Protein 7.4 g/dL (6.3-8.2)
[2025-01-31 21:12] LABS: Iron 59 ug/dL (49-181)
[2025-01-31 21:21] LABS: Percent Iron Saturation 24 % (20-50)
[2025-01-31 21:48] LABS: Ferritin 56.00 ng/mL (11.1-264)
== END 2025-01-31 12:34 | disposition home or self-care (01) ==
LOC: ANHGOSHLAB 12:33
PROVIDERS: PCP Family Medicine; Visit Provider Family Medicine
DX: I10 Essential (primary) hypertension (principal); E55.9 Vitamin D deficiency, unspecified; D64.9 Anemia, unspecified
CPT/HCPCS: 36415; 80053; 82306; 82728; 83540; 83550